=== PATIENT | male | born 1950 | race Caucasian/White ===

== ENCOUNTER → 2023-05-05 06:33 | Outpatient (REF) | payer MEDICARE, OTHER, SELFPAY ==
[2023-05-05 09:28] LABS: % Basophils 0.7 % (0-2); % Eosinophils 3.9 % (0-6); % Immature Granulocytes 0.4 % (0-0.5); % Monocytes 10.8 % (1.7-9.3); % Neutrophils 57.2 % (42.2-75.2); Absolute Eosinophils 0.2 10^3/uL (0-0.7); Absolute Lymphocytes 1.5 10^3/uL (1.2-3.4); Absolute Monocytes 0.6 10^3/uL (0.1-0.6); Absolute Neutrophils 3.1 10^3/uL (1.4-6.5); Hematocrit 45.1 % (39.0-52.0); Hemoglobin 16.2 g/dL (13.0-18.0); Mean Corp Hgb Conc. 35.9 g/dL (33.0-37.0); Mean Corpuscular Hgb 32.7 pg (27.0-31.0); Mean Corpuscular Volume 90.9 fL (80.0-94.0); Mean Platelet Volume 9.6 fL (7.4-10.4); Nucleated Red Blood Cells % 0 % (-); Platelet Count 194 10^3/uL (130-400); Red Blood Cell Count 4.96 10^6/uL (4.70-6.10); Red Cell Dist. Width 12.1 % (11.5-14.5); White Blood Cell Count 5.5 10^3/uL (4.8-10.8)
[2023-05-05 09:58] LABS: Glycohemoglobin (HgbA1c) 6.2 % (4.0-5.6)
[2023-05-05 10:15] LABS: ALT (SGPT) 53 U/L (0-50); AST (SGOT) 52 U/L (17-59); Albumin 4.3 g/dl (3.5-5.0); Alkaline Phosphatase 71 U/L (38-126); Blood Urea Nitrogen 16 mg/dl (9-20); Calcium 9.7 mg/dl (8.4-10.2); Carbon Dioxide 22 mmol/L (22-30); Chloride 107 mmol/L (98-107); Glucose 132 mg/dl (70-99); HDL Cholesterol 43 mg/dl; LDL Cholesterol, Calculated 212 mg/dl; Potassium 4.2 mmol/L (3.5-5.1); Sodium 139 mmol/L (135-145); Total Bilirubin 0.9 mg/dl (0.2-1.3); Total Cholesterol 302 mg/dl (50-199); Total Protein 7.8 g/dl (6.3-8.2); Triglyceride 235 mg/dl (10-149); Very Low Density Lipoprotein 47 mg/dl (0-30); eGFR 58.73
== END ==
LOC: HWLAB 06:33
PROVIDERS: ATTENDING PHYSICIAN Surgery Vascular Surgery; FAMILY PHYSICIAN Internal Medicine; REFERRING PHYSICIAN Internal Medicine Cardiovascular Disease
DX: I71.40 Abdominal aortic aneurysm, without rupture, unspecified (principal); I10 Essential (primary) hypertension; E78.5 Hyperlipidemia, unspecified
CPT/HCPCS: 36415; 80053; 80061; 83036; 85025

== ENCOUNTER → 2023-05-06 13:10 | Outpatient (REF) | payer MEDICARE, OTHER, SELFPAY | LOC: HWRAD 13:10 | PROVIDERS: ATTENDING PHYSICIAN Surgery Vascular Surgery; FAMILY PHYSICIAN Internal Medicine | DX: I71.40 Abdominal aortic aneurysm, without rupture, unspecified (principal) | CPT/HCPCS: 74174; Q9967 ==

== ENCOUNTER 2023-08-06 23:35 | Emergency (ER) | payer MEDICARE, OTHER, SELFPAY ==
[2023-08-06 23:38] VITALS: BP 156/110
[2023-08-06 23:59] LABS: % Basophils 0.5 % (0-2); % Eosinophils 2.2 % (0-6); % Immature Granulocytes 0.4 % (0-0.5); % Lymphocytes 10.5 % (20.5-51.1); % Monocytes 9.5 % (1.7-9.3); % Neutrophils 76.9 % (42.2-75.2); Absolute Basophils 0.1 10^3/uL (0-0.2); Absolute Eosinophils 0.3 10^3/uL (0-0.7); Absolute Immature Granulocytes 0.1 10^3/uL (0-0.05); Absolute Lymphocytes 1.2 10^3/uL (1.2-3.4); Absolute Monocytes 1.1 10^3/uL (0.1-0.6); Hematocrit 40.4 % (39.0-52.0); Hemoglobin 14.7 g/dL (13.0-18.0); Mean Corp Hgb Conc. 36.4 g/dL (33.0-37.0); Mean Corpuscular Hgb 32.5 pg (27.0-31.0); Mean Corpuscular Volume 89.2 fL (80.0-94.0); Mean Platelet Volume 9.1 fL (7.4-10.4); Nucleated Red Blood Cells % 0 % (-); Platelet Count 172 10^3/uL (130-400); Red Blood Cell Count 4.53 10^6/uL (4.70-6.10); Red Cell Dist. Width 12.3 % (11.5-14.5); White Blood Cell Count 11.7 10^3/uL (4.8-10.8)
[2023-08-07] MEDS: ZOFRAN 4 MG IV (00:07)
[2023-08-07] MEDS: DILAUDID 0.5 MG IV ×2 (00:07→01:10)
[2023-08-07 00:11] VITALS: BP 117/77
[2023-08-07 00:13] LABS: ALT (SGPT) 34 U/L (0-50); AST (SGOT) 47 U/L (17-59); Albumin 4.2 g/dl (3.5-5.0); Alkaline Phosphatase 63 U/L (38-126); Blood Urea Nitrogen 18 mg/dl (9-20); Calcium 9.6 mg/dl (8.4-10.2); Carbon Dioxide 22 mmol/L (22-30); Chloride 105 mmol/L (98-107); Glucose 183 mg/dl (70-99); Potassium 3.9 mmol/L (3.5-5.1); Sodium 138 mmol/L (135-145); Total Bilirubin 0.8 mg/dl (0.2-1.3); Total Protein 7.4 g/dl (6.3-8.2); eGFR > 60.00
[2023-08-07 00:23] LABS: Urine Albumin Negative (Neg - Trace); Urine Bilirubin Negative (Negative); Urine Character Clear (Clear); Urine Color Yellow; Urine Glucose Negative (Negative); Urine Ketone Negative (Negative); Urine Leukocyte Negative (Negative); Urine Nitrite Negative (Negative); Urine Occult Blood 4+ (Negative); Urine Urobilinogen Negative (Neg - 1+)
[2023-08-07 00:37] LABS: Urine Red Blood Cell 60-70 /HPF (0-2); Urine White Cell 0-2 /HPF (0-5)
[2023-08-07 01:00] VITALS: BP 124/79
[2023-08-07 02:00] VITALS: BP 119/78
--- NOTE | 2023-08-07 02:06 | ED.GENMED ---
History of Present Illness
General
Chief Complaint: Flank Pain
Source: patient
Exam Limitations: none
Time Seen by Provider: 08/06/23 23:59
Nursing documentation reviewed up to this point in time: agreed with
Travel History
Have you had any contact with someone who has COVID-19?: No
Do you have any symptoms of coronavirus? Fever > 100 degrees, chills, cough, shortness of breath, sore throat, loss of taste or smell, muscle aches, or headache?: No
History of Present Illness
History of Present Illness:
Patient to ED with complaint of left flank pain. Pain started this evening. Denies fever/chills, n/v/d. Hx of kidney stones. Last event apptox 2 years ago. Had stent placed at [facility]. Brought to ED by family for eval.
Past History
Past History
ED Past Medical History: GERD, HTN, Hypercholesterolemia and Other (AAA, kidney stones)
ED Past Surgical History: Tonsilectomy and Other (AAA repair)
Social History
Tobacco: Former smoker
Alcohol: Occasional
Drug: None
Personal: Single
Living: alone
Review of Systems
Review of Systems
Allergies reviewed?: Yes
All Other Systems: ROS reviewed and negative except as documented in HPI and ROS
Constitutional: Reports no symptoms
EENT: Reports no symptoms
Respiratory: Reports no symptoms
Cardiac: Reports no symptoms
ABD/GI: Reports no symptoms
: Reports flank pain (left flank pain)
Musculoskeletal: Reports no symptoms
Skin: Reports no symptoms
Neurological: Reports no symptoms
Psychiatric: Reports no symptoms
Phy Exam
General Physical Exam
General Presentation: well appearing and mild distress
General age: appears stated age
General Skin: warm and dry
General Habitus: normal
General Mental: alert
Gastrointestinal Exam
Gastrointestinal Exam: normal bowel sounds, non tender, soft and no organomegaly
Musculoskeletal Exam
Musculoskeletal Exam: full ROM
Skin Exam
Skin Exam: normal color, warm/dry and no rash
Psychiatric Exam
Psychiatric Exam: normal mood/affect
Course
Orders/Labs/Results
Orders:
Orders
08/06/23 23:42
UA Reflex to Culture [Urinalysis Reflex To Culture] Urgent
Date Specimen was Collected: 08/06/23
Time Specimen was Collected: 23:42
08/06/23 23:53
Complete Blood Count/With Diff Urgent
Comprehensive Metabolic Panel Urgent
08/07/23 00:00
CT Abd/pel Without Iv Or Oral Urgent
Comment:
Reason For Exam: flank pain
08/07/23 00:03
HYDROmorphone [Dilaudid] 0.5 mg .ROUTE .STK-MED ONE
HYDROmorphone [Dilaudid] 0.5 mg .ROUTE .STK-MED ONE
Ondansetron Injectable [Zofran] 4 mg .ROUTE .STK-MED ONE
Ondansetron Injectable [Zofran] 4 mg .ROUTE .STK-MED ONE
08/07/23 00:05
HYDROmorphone [Dilaudid] 0.5 mg IV NOW STA
Ondansetron Injectable [Zofran] 4 mg IV NOW STA
08/07/23 00:14
Urine Microscopic Reflex Cult Urgent
08/07/23 01:03
HYDROmorphone [Dilaudid] 0.5 mg IV NOW STA
08/07/23 02:05
Tamsulosin [Flomax] 0.4 mg PO NOW STA
Abnormal Lab Results
08/06/23 08/07/23
23:53 00:14
WBC 11.7 H 10^3/uL
(4.8-10.8)
RBC 4.53 L 10^6/uL
(4.70-6.10)
MCH 32.5 H pg
(27.0-31.0)
Abs Immat Gran (auto) 0.1 H 10^3/uL
(0-0.05)
Absolute Neuts (auto) 9.0 H 10^3/uL
(1.4-6.5)
Absolute Monos (auto) 1.1 H 10^3/uL
(0.1-0.6)
Neutrophils % 76.9 H %
(42.2-75.2)
Lymphocytes % 10.5 L %
(20.5-51.1)
Monocytes % 9.5 H %
(1.7-9.3)
Glucose 183 H mg/dl
(70-99)
Ur Occult Blood Reflex 4+ A
(Negative)
Urine RBC 60-70 A /HPF
(0-2)
08/06/23 23:53
08/06/23 23:53
Vital Signs
Initial and Last Documented VS:
Initial Vital Signs
Temp Pulse Resp BP Pulse Ox
98.0 F 79 20 156/110 97
08/06/23 23:38 08/06/23 23:38 08/06/23 23:38 08/06/23 23:38 08/06/23 23:38
Last Documented Vital Signs
Temp Pulse Resp BP Pulse Ox
98.0 F 79 20 124/79 92
08/06/23 23:38 08/06/23 23:38 08/06/23 23:38 08/07/23 01:00 08/07/23 01:30
*Radiology
Radiology exam reviewed: radiology read reviewed
*Pulse Oximetry
Patient hypoxic: no
*Critical Care Note
Total Time (30-74mins, 75-104mins- exclusive of procedures): Not Applicable
Update Note
Update Note:
Ct report reviewed with patient. 7mm obstructing stone distal left ureter. He is aware that this stone may not pass on own and require placement of stent. He has had stones in the past and has had stents placed. He does not want to be admitted
tonight He would like to go home with pain medications and try to pass on own. He is well controlled with pain meds here. No nausea or vomiting while in dept. UA without evidence of infection. WIll place on flomax and provide pain medications
for home. He was given instructions on s/s to return to ED and he is agreeable to plan. Given number for urology follow up and will call in AM for appt.
ED Attending Note
-
Portions of this chart may have been created with voice recognition software.� Occasional wrong word or��sound alike� substitutions may have occurred due to the inherent limitations of voice recognition software.
Discharge Plan
Departure
Patient Disposition: Home (Routine Discharge)
Date of Disposition: 08/07/23
Time of Disposition: 02:13
Patient with high blood pressure during this ER visit?: No
Condition: Good
Covid-19: Not Applicable
Discharge Problem:
Kidney stone
Instructions: Kidney Stones (DC), How to Strain Your Urine, Narcotic Pain Medication
Prescriptions:
New
tamsulosin [Flomax] 0.4 mg capsule
0.4 mg PO DAILY Qty: 14 0RF
oxycodone-acetaminophen [Percocet] 5-325 mg tablet
1 - 2 tab PO Q4HPRN PRN (Reason: pain) Qty: 20 0RF
No Action
valsartan 80 MG tablet
80 mg PO DAILY
metoprolol succinate 25 MG tablet extended release 24 hr
50 mg PO DAILY
rosuvastatin 10 MG tablet
20 mg PO DAILY
ascorbic acid (vitamin C) 250 MG tablet
250 mg PO DAILY
vitamin B complex 1 TAB tablet
1 tab PO DAILY
cholecalciferol (vitamin D3) 2,000 UNIT tablet
2,000 unit PO DAILY
acetaminophen 325 MG tablet
650 mg PO Q4HPRN PRN (Reason: mild pain or temp >/= 100.4F) 0RF
pantoprazole 20 MG tablet,delayed release (DR/EC)
20 mg PO DAILY 0RF
aspirin 81 MG tablet,chewable
81 mg PO DAILY Qty: 90 0RF
clopidogrel [Plavix] 75 MG tablet
75 mg PO DAILY Qty: 90 0RF
Referrals:
Rick Christy MD [Family Provider] -
Cale Nichols MD [Active] - Call in 1-3 days for appt
Activity Restrictions/Additional Instructions:
Call in AM to schedule your appointment with Dr. Nichols. Return to the emergency department immediately for fever/chills, increasing pain, vomiting, or for any further concerns.
Interventions
Interventions:
*Risk Screen - Suicide Last Done: 08/06/23 23:38
*General Assessment Last Done: 08/06/23 23:38
*Neglect/Abuse Screening Last Done: 08/06/23 23:38
ED- Fall Risk Assessment Last Done: 08/06/23 23:38
*ED COVID-19 Vaccine History Last Done: 08/06/23 23:38
VE-Sghbog-Neuzmryhyt Assessment Last Done: 08/07/23 00:59
ED-Male Genitourinary Assessment Last Done: 08/07/23 00:59
Discharge Date and Time
Print Language: ZIMBABWEAN
[2023-08-07] MEDS: FLOMAX 0.400000000000000022 MG PO (02:21)
[2023-08-07] MEDS: PERCOCET 5/325 1 TABLET PO (03:06)
== END 2023-08-07 03:11 | disposition home or self-care (01) ==
LOC: EMR 23:35
PROVIDERS: Emergency Medicine; EMERGENCY PHYSICIAN Emergency Medicine; FAMILY PHYSICIAN Internal Medicine
DX: N20.1 Calculus of ureter (principal)
CPT/HCPCS: 99284; 96374; 96375; 96376; 74176; 80053; 81003; 81015; 85025

== ENCOUNTER 2024-04-28 20:11 | Inpatient (IN) | payer MEDICARE, OTHER, SELFPAY ==
[2024-04-28] VITALS (7 sets, daily range): BP systolic 129–153; BP diastolic 76–101; BMI 25.9
[2024-04-28 11:33] LABS: % Basophils 0.4 % (0-2); % Eosinophils 0.5 % (0-6); % Immature Granulocytes 0.4 % (0-0.5); % Lymphocytes 6.9 % (20.5-51.1); % Monocytes 10.6 % (1.7-9.3); % Neutrophils 81.2 % (42.2-75.2); Absolute Eosinophils 0.1 10^3/uL (0-0.7); Absolute Lymphocytes 0.8 10^3/uL (1.2-3.4); Absolute Monocytes 1.2 10^3/uL (0.1-0.6); Absolute Neutrophils 9.1 10^3/uL (1.4-6.5); Hematocrit 43.4 % (39.0-52.0); Hemoglobin 14.7 g/dL (13.0-18.0); Mean Corp Hgb Conc. 33.9 g/dL (33.0-37.0); Mean Corpuscular Hgb 32.5 pg (27.0-31.0); Mean Corpuscular Volume 95.8 fL (80.0-94.0); Mean Platelet Volume 9.5 fL (7.4-10.4); Nucleated Red Blood Cells % 0 % (-); Platelet Count 296 10^3/uL (130-400); Red Blood Cell Count 4.53 10^6/uL (4.70-6.10); Red Cell Dist. Width 12.2 % (11.5-14.5); White Blood Cell Count 11.2 10^3/uL (4.8-10.8)
[2024-04-28 11:41] LABS: ALT (SGPT) 68 U/L (0-50); AST (SGOT) 42 U/L (17-59); Albumin 3.6 g/dl (3.5-5.0); Alkaline Phosphatase 183 U/L (38-126); Blood Urea Nitrogen 16 mg/dl (9-20); Calcium 9.2 mg/dl (8.4-10.2); Carbon Dioxide 25 mmol/L (22-30); Chloride 99 mmol/L (98-107); Glucose 191 mg/dl (70-99); Potassium 4.3 mmol/L (3.5-5.1); Sodium 137 mmol/L (135-145); Total Bilirubin 1.1 mg/dl (0.2-1.3); Total Protein 7.2 g/dl (6.3-8.2); eGFR > 60.00
[2024-04-28 11:50] LABS: Urine Albumin 3+ (Neg - Trace); Urine Bilirubin 1+ (Negative); Urine Character Clear (Clear); Urine Color Yellow; Urine Glucose 1+ (Negative); Urine Ketone Negative (Negative); Urine Leukocyte 1+ (Negative); Urine Nitrite Negative (Negative); Urine Occult Blood 3+ (Negative); Urine Specific Gravity 1.015 (<1.030); Urine Urobilinogen 4+ (Neg - 1+)
[2024-04-28 12:59] LABS: Urine Bacteria Moderate (Negative); Urine Squamous Cell 0-2 /LPF (Few)
--- NOTE | 2024-04-28 14:07 | ED.GENMED ---
History of Present Illness
General
Chief Complaint: Flank Pain
Source: patient
Exam Limitations: none
Time Seen by Provider: 04/28/24 14:05
Nursing documentation reviewed up to this point in time: agreed with
History of Present Illness
History of Present Illness:
73 yo male with hx HTN, HLD, AAA repair, kidney stones, GERD, presents for right flank pain radiating around to the right abdomen for the past few days, getting worse.
States he had a fever and body aches a week ago has been taking Advil. Has been taking Tamiflu with improvement of body aches, fever.
Past History
Past History
ED Past Medical History: GERD, HTN, Hypercholesterolemia and Other (AAA, kidney stones)
ED Past Surgical History: Tonsilectomy and Other (AAA repair)
Social History
Tobacco: Former smoker
Alcohol: Occasional
Drug: None
Personal: Single
Living: alone
Review of Systems
Review of Systems
Allergies reviewed?: Yes
All Other Systems: ROS reviewed and negative except as documented in HPI and ROS
Constitutional: Denies fever
Respiratory: Denies cough or trouble breathing
Cardiac: Denies chest pain
ABD/GI: Denies nausea, vomiting or diarrhea
: Reports flank pain (right); Denies frequency or difficulty voiding
Musculoskeletal: Reports no symptoms
Skin: Reports no symptoms
Neurological: Reports no symptoms
Phy Exam
Physical Exam
Physical Exam:
GENERAL: No acute distress. A&Ox3.
CONSTITUTIONAL: Afebrile. T 98.7 for this examiner is shivering
EYES: clear, conjunctivae normal
ENMT: moist mucus membranes, Pharynx nl
RESPIRATORY: Regular respirations, nonlabored, lungs clear.
CARDIOVASCULAR: Regular rate and rhythm, no murmurs, no rubs. Tachycardic HR 122
GI: Soft, nontender, normal BS. R flank tenderness to percussion
MUSCULOSKELETAL: Moves with ease. Well perfused. No edema
SKIN: Warm, dry, pink
PSYCH: Normal mood and affect. Well kept, interactive and appropriate
NEUROLOGIC: Awake, alert and oriented. No focal neurological deficits
Course
Orders/Labs/Results
Orders:
Orders
04/28/24 11:10
Complete Blood Count/With Diff Urgent
Comprehensive Metabolic Panel Urgent
Urinalysis Reflex To Culture Urgent
Date Specimen was Collected: 04/28/24
Time Specimen was Collected: 11:02
Urine Microscopic Reflex Cult Urgent
Urine Culture Urgent
JEAN MARIE Source: U
Specimen Description:
Date Specimen was Collected: 04/28/24
Time Specimen was Collected: 11:02
04/28/24 14:07
CT Abd/pel Without Iv Or Oral Urgent
Comment:
Reason For Exam: Right flank pain hematuria history of renal stones
04/28/24 14:14
Morphine Sulfate 4 mg IV NOW STA
04/28/24 14:18
0.9% Sodium Chloride 1000 ml [Nss] 1,000 ml IV BOLUS
04/28/24 14:47
Influenza A+B Rapid Molecular Urgent
JEAN MARIE Source: Nasal Swab
Specimen Description:
04/28/24 14:50
COVID-19 Antigen Urgent
Source: Nasal Swab
04/28/24 15:53
CR Chest - 2 Views Urgent
Comment:
Reason For Exam: fever, flu like symptoms, flu neg
04/28/24 17:14
Acetaminophen [Tylenol] 650 mg .ROUTE .STK-MED ONE
04/28/24 17:17
Acetaminophen [Tylenol] 650 mg PO NOW STA
04/28/24 17:27
Lactic Acid Urgent
Blood Culture Urgent
JEAN MARIE Source: Blood/Venous
Specimen Description:
04/28/24 17:32
0.9% Sodium Chloride 1000 ml [Nss] 1,000 ml IV BOLUS
04/28/24 17:57
Blood Culture Urgent
JEAN MARIE Source: Blood/Venous
Specimen Description:
04/28/24 19:02
CefTRIAXone [Rocephin] 1,000 mg IV NOW STA
Abnormal Lab Results
04/28/24
11:10
WBC 11.2 H 10^3/uL
(4.8-10.8)
RBC 4.53 L 10^6/uL
(4.70-6.10)
MCV 95.8 H fL
(80.0-94.0)
MCH 32.5 H pg
(27.0-31.0)
Absolute Neuts (auto) 9.1 H 10^3/uL
(1.4-6.5)
Absolute Lymphs (auto) 0.8 L 10^3/uL
(1.2-3.4)
Absolute Monos (auto) 1.2 H 10^3/uL
(0.1-0.6)
Neutrophils % 81.2 H %
(42.2-75.2)
Lymphocytes % 6.9 L %
(20.5-51.1)
Monocytes % 10.6 H %
(1.7-9.3)
Glucose 191 H mg/dl
(70-99)
ALT 68 H U/L
(0-50)
Alkaline Phosphatase 183 H U/L
(38-126)
Ur Occult Blood Reflex 3+ A
(Negative)
Urine Bilirubin 1+ A
(Negative)
Urine Urobilinogen 4+ A
(Neg - 1+)
Leukocyte Esterase Rfl 1+ A
(Negative)
Urine RBC 7-10 A /HPF
(0-2)
Urine Bacteria (Reflex) Moderate A
(Negative)
Urine Glucose 1+ A
(Negative)
Urine Albumin (Reflex) 3+ A
(Neg - Trace)
04/28/24 11:10
04/28/24 11:10
Vital Signs
Initial and Last Documented VS:
Initial Vital Signs
Temp Pulse Resp BP Pulse Ox
98.7 F 120 16 129/86 98
04/28/24 11:00 04/28/24 11:00 04/28/24 11:00 04/28/24 11:00 04/28/24 11:00
Last Documented Vital Signs
Temp Pulse Resp BP Pulse Ox
102.9 F H 111 18 134/78 97
04/28/24 18:00 04/28/24 18:00 04/28/24 18:00 04/28/24 18:00 04/28/24 18:00
MDM/Problems Addressed
Differential Diagnosis Includes:
UTI, Pyelonephritis, kidney/ureteral stone
Flu, Covid, Viral illness
MDM/Problems Addressed:
73 yo male with hx HTN, HLD, AAA repair, kidney stones, GERD, presents for right flank pain radiating around to the right abdomen for the past few days, getting worse.
States he had a fever and body aches a week ago has been taking Advil. Has been taking Tamiflu with improvement of body aches, fever.
Afebrile, NAD
Shivering, tachycardic HR 122
Right flank pain 7/10
3:00 PM:
CBC with no clinically significant abnormality
CMP with no clinically significant abnormality mild elevation in ALT alk phos most likely reactive to viral illness
U/A: RBC, 6-10 WBC with moderate bacteria. Urine culture ordered
3:45 PM:
CAT scan abdomen pelvis plain radiology report read: IMPRESSION:
1). There is no evidence of acute pathology.
There are no obstructing renal or ureteral calculi.
There is no hydronephrosis or hydroureter.
2). There is a 6 mm nonobstructing calculus in the upper pole the right kidney
3). There is cholelithiasis
4). There is aortobiiliac stent traverses 5.3 cm infrarenal abdominal aortic aneurysm
Hx and exam most consistent with recently passed stone.
COVID is negative
Influenza is negative
Temp 100.7 will get CXR
5:00 PM:
Patient spiked a fever of 102.8, heart rate 125, BP 146/101, RR 22, pulse ox 96%
Abdomen totally benign, no flank pain now. Pt states headache and general body aches.
Neck supple, no meningismus chest x-ray: Radiology report read: IMPRESSION:
1. No radiographic evidence for pneumonia.
2. Mild elevation of the anterior right hemidiaphragm.
6:50 PM:
Patient has defervesced to 98.1 after Tylenol and 2 L of IV fluid but HR 109
He states he feels like he broke his fever because he broke out in a sweat and is feeling better
He still has a mild headache
He has been out of bed and ambulating to the bathroom and back with steady gait
Concern for pyelonephritis with high fever, initially right flank pain, tachycardia
Case discussed with Dr. Carrero who agree with Ibis, admit pending blood and urine cultures
*Critical Care Note
Total Time (30-74mins, 75-104mins- exclusive of procedures): Not Applicable
ED Attending Note
-
Portions of this chart may have been created with voice recognition software.� Occasional wrong word or��sound alike� substitutions may have occurred due to the inherent limitations of voice recognition software.
Discharge Plan
Departure
Patient Disposition: Admit
Date of Disposition: 04/28/24
Time of Disposition: 18:52
Admit to: Med/Surg
Presentation/result/management discussed w/ accepting MD/DO: Hospitalist
Patient with high blood pressure during this ER visit?: No
Condition: Fair
Covid-19: Negative COVID-19
Discharge Problem:
Fever and chills, Acute right flank pain, Acute UTI
Prescriptions:
No Action
valsartan 80 MG tablet
80 mg PO DAILY
metoprolol succinate 25 MG tablet extended release 24 hr
50 mg PO DAILY
rosuvastatin 10 MG tablet
20 mg PO DAILY
ascorbic acid (vitamin C) 250 MG tablet
250 mg PO DAILY
vitamin B complex 1 TAB tablet
1 tab PO DAILY
cholecalciferol (vitamin D3) 2,000 UNIT tablet
2,000 unit PO DAILY
acetaminophen 325 MG tablet
650 mg PO Q4HPRN PRN (Reason: mild pain or temp >/= 100.4F) 0RF
pantoprazole 20 MG tablet,delayed release (DR/EC)
20 mg PO DAILY 0RF
aspirin 81 MG tablet,chewable
81 mg PO DAILY Qty: 90 0RF
clopidogrel [Plavix] 75 MG tablet
75 mg PO DAILY Qty: 90 0RF
tamsulosin [Flomax] 0.4 mg capsule
0.4 mg PO DAILY Qty: 14 0RF
oxycodone-acetaminophen [Percocet] 5-325 mg tablet
1 - 2 tab PO Q4HPRN PRN (Reason: pain) Qty: 20 0RF
Referrals:
Rick Christy MD [Family Provider] - Follow up in 5-7 days
Interventions
Interventions:
*Risk Screen - Suicide Last Done: 04/28/24 11:00
*General Assessment Last Done: 04/28/24 15:41
*Neglect/Abuse Screening Last Done: 04/28/24 11:00
ED- Fall Risk Assessment Last Done: 04/28/24 15:41
*ED COVID-19 Vaccine History Last Done: 04/28/24 15:41
GY-Fkwgxf-Akxevgyrzv Assessment Last Done: 04/28/24 15:41
ED-Male Genitourinary Assessment Last Done: 04/28/24 15:41
Discharge Date and Time
Print Language: [place]
[2024-04-28] MEDS: MORPHINE SULFATE 4 MG IV (14:40)
[2024-04-28] MEDS: NSS 1000 IV ×3 (14:40→21:41)
[2024-04-28 15:28] LABS: COVID-19 Antigen Negative (Negative)
--- NOTE | 2024-04-28 17:02 | EDRN ---
Obinna DALLAS TT'd about fever 102.8 and 125 at this time.
[2024-04-28] MEDS: TYLENOL 650 MG PO ×2 (17:18→23:53)
--- NOTE | 2024-04-28 17:34 | EDRN ---
Obinna DALLAS in room w/pt at this time.
[2024-04-28 17:47] LABS: Lactic Acid 1.6 mmol/L (0.7-2.0)
[2024-04-28] MEDS: ROCEPHIN 1000 MG IV (19:17)
--- NOTE | 2024-04-28 19:54 | HPS.HSE ---
Family Physician
-
Family Physician: Rick Christy
Chief Complaint
-
right flank pain
History of Present Illness
73-year-old male past medical history of hypertension, hyperlipidemia, abdominal aortic aneurysm status post aortic stent graft repair, nephrolithiasis, GERD, presenting with right-sided flank pain radiating around to the anterior abdomen and down
to the groin for the past 6 days associated with fever. He thought he was having a kidney stone. He was also having generalized bodyaches for the past several days without any upper respiratory symptoms such as cough, congestion, sore throat or
shortness of breath. He thought that he may have the flu so he took Tamiflu which he took for 3 to 4 days with some improvement in his body aches. He lives with his family and denies any sick contacts.
He denies any urinary symptoms, blood in the urine, nausea vomiting or diarrhea.
Medical History
Past Medical History
Past Medical History: Reports Other (hypertension, hyperlipidemia, abdominal aortic aneurysm status post aortic stent graft repair, nephrolithiasis, GERD)
Past Surgical History: Reports Other (AAA repair )
Social History
Tobacco: Non-smoker
Alcohol: None
Drug: None
Family History
Family History: Not pertinent
Allergies / Home Medications
Allergies reflects when Allergies were last updated in [facility].
Home Medications with original date entered in [facility]
Allergy/Medication List:
Allergies
Allergy/AdvReac Type Severity Reaction Status Date / Time
No Known Allergies Allergy Verified 04/28/24 11:01
Home Medications
rosuvastatin 10 mg tablet 20 mg PO DAILY High cholesterol 08/22/21
valsartan 80 mg tablet 160 mg PO QPM Blood pressure 08/22/21
vitamin B complex 1 tab PO DAILY Supplement 08/25/21
acetaminophen 325 mg tablet 650 mg (2 x 325 mg) PO Q4HPRN PRN mild pain or temp >/= 100.4F 09/03/21
aspirin 81 mg chewable tablet 81 mg PO DAILY #90 tabs 09/03/21
metoprolol succinate 50 mg tablet,extended release 24 hr (Toprol XL) 50 mg PO DAILY 04/28/24
omeprazole 20 mg tablet,delayed release 20 mg PO DAILY 04/28/24
Review of Systems
-
History Source: Patient
A 12 point ROS was completed and negative except as noted: Yes
Constitutional: Reports No Symptoms
EENT: Reports No Symptoms
Respiratory: Reports No Symptoms
Cardiac: Reports No Symptoms
Abdomen/GI: Reports See HPI
: Reports No Symptoms
Musculoskeletal: Reports No Symptoms
Skin: Reports No Symptoms
Neurological: Reports No Symptoms
Endocrine: Reports No Symptoms
Hematologic/Lymphatic: Reports No Symptoms
Psych: Reports No Symptoms
Physical Exam
Vital Signs
Vital Signs
Temp Pulse Resp BP Pulse Ox
102.9 F H 111 18 134/78 97
04/28/24 18:00 04/28/24 18:00 04/28/24 18:00 04/28/24 18:00 04/28/24 18:00
Physical Exam
General: Well Developed, Well Nourished and No Apparent Distress
HEENT: NormoCephalic, Moist mucous membranes and Atraumatic
Respiratory: Clear
Cardiac: S1/S2 and Regular Rhythm; No Murmur or Rub
GI: Soft, Non Tender, Non Distended and Normal Bowel Sounds; No Organomegaly
Rectal: Deferred by Provider
Musculoskeletal: No Clubbing, No Cyanosis and No Edema
Skin: No Rash
Neuro: Nonfocal/grossly intact
Laboratory Results
-
04/28/24 11:10
04/28/24 11:10
Laboratory Results
Lactic Acid 1.6 mmol/L (0.7-2.0) 04/28/24 17:27
Total Bilirubin 1.1 mg/dl (0.2-1.3) 04/28/24 11:10
AST 42 U/L (17-59) 04/28/24 11:10
ALT 68 U/L (0-50) H 04/28/24 11:10
Alkaline Phosphatase 183 U/L (38-126) H 04/28/24 11:10
Data Reviewed
-
Lab Data: Labs Reviewed by me
Old Records: Reviewed
Impression/Plan
-
IMPRESSION:
PLAN:
# Sepsis (fever, tachycardia, leukocytosis) presumably secondary to UTI
# Right flank pain possibly secondary to nonobstructive kidney stone versus musculoskeletal
-Urinalysis not strongly positive, shows 6-10 WBC, moderate bacteria, +1 leukocyte esterase but no other source
-Chest x-ray unremarkable
-Influenza and COVID-negative
-CT abdomen pelvis shows no acute pathology or obstructing calculi but there is 6 mm nonobstructing calculus in the upper pole of the right kidney
-Check urine culture, blood cultures
-IV fluids
-Source is presumably UTI so we will treat with ceftriaxone although no urinary symptoms
-Morphine for pain
Essential hypertension
-Continue metoprolol, valsartan
Hyperlipidemia
-Continue statin
Abdominal aortic aneurysm status post repair
-Continue aspirin
History of nephrolithiasis
GERD
-Continue omeprazole
Full code
DVT prophylaxis�heparin
Regular diet
--- NOTE | 2024-04-28 20:23 | ED.GENMED ---
History of Present Illness
General
Chief Complaint: Flank Pain
Source: patient
Exam Limitations: none
Time Seen by Provider: 04/28/24 14:05
Nursing documentation reviewed up to this point in time: agreed with
History of Present Illness
History of Present Illness:
73 yo male w h/o HTN, HLD, GERD, recurrent kidney stones, AAA s/p vascular graft repair presents with R side flank pain radiating to right lower abdomen, fever, chills, since 04/26 , then developed general aching pains . Is on day 3 of Tamiflu with
no improvement. Denies CP, SOB, n/v/d.
Past History
Past History
ED Past Medical History: GERD, HTN, Hypercholesterolemia and Other (AAA, kidney stones)
ED Past Surgical History: Tonsilectomy and Other (AAA repair)
Social History
Tobacco: Former smoker
Alcohol: Occasional
Drug: None
Personal: Single
Living: alone
Review of Systems
Review of Systems
Allergies reviewed?: Yes
All Other Systems: ROS reviewed and negative except as documented in HPI and ROS
Constitutional: Reports fever and chills
EENT: Denies sore throat
Respiratory: Denies trouble breathing
Cardiac: Denies chest pain
ABD/GI: Reports abdominal pain; Denies nausea, vomiting or diarrhea
: Reports flank pain (Right); Denies dysuria or difficulty voiding
Musculoskeletal: Reports other (General Body aches); Denies edema
Skin: Reports no symptoms
Neurological: Reports no symptoms
Phy Exam
Physical Exam
Physical Exam:
GENERAL: No acute distress. A&Ox3.
CONSTITUTIONAL: Afebrile.
EYES: clear, conjunctivae normal
ENMT: moist mucus membranes, Pharynx nl
RESPIRATORY: Regular respirations, nonlabored, lungs clear.
CARDIOVASCULAR: Regular rate and rhythm, no murmurs, no rubs.
GI: Soft, right flank with no significant tenderness, normal BS
MUSCULOSKELETAL: Moves with ease. Well perfused.
SKIN: Warm, dry, pink
PSYCH: Anxious mood and affect. Well kept, interactive and appropriate
NEUROLOGIC: Awake, alert and oriented. No focal neurological deficits
Course
Orders/Labs/Results
Orders:
Orders
04/28/24 11:10
Complete Blood Count/With Diff Urgent
Comprehensive Metabolic Panel Urgent
Urinalysis Reflex To Culture Urgent
Date Specimen was Collected: 04/28/24
Time Specimen was Collected: 11:02
Urine Microscopic Reflex Cult Urgent
Urine Culture Urgent
JEAN MARIE Source: U
Specimen Description:
Date Specimen was Collected: 04/28/24
Time Specimen was Collected: 11:02
04/28/24 14:07
CT Abd/pel Without Iv Or Oral Urgent
Comment:
Reason For Exam: Right flank pain hematuria history of renal stones
04/28/24 14:14
Morphine Sulfate 4 mg IV NOW STA
04/28/24 14:18
0.9% Sodium Chloride 1000 ml [Nss] 1,000 ml IV BOLUS
04/28/24 14:47
Influenza A+B Rapid Molecular Urgent
JEAN MARIE Source: Nasal Swab
Specimen Description:
04/28/24 14:50
COVID-19 Antigen Urgent
Source: Nasal Swab
04/28/24 Dinner
Regular
At Your Request: Limited Participation
04/28/24 15:53
CR Chest - 2 Views Urgent
Comment:
Reason For Exam: fever, flu like symptoms, flu neg
04/28/24 17:14
Acetaminophen [Tylenol] 650 mg .ROUTE .STK-MED ONE
04/28/24 17:17
Acetaminophen [Tylenol] 650 mg PO NOW STA
04/28/24 17:27
Lactic Acid Urgent
Blood Culture Urgent
JEAN MARIE Source: Blood/Venous
Specimen Description:
04/28/24 17:32
0.9% Sodium Chloride 1000 ml [Nss] 1,000 ml IV BOLUS
04/28/24 17:57
Blood Culture Urgent
JEAN MARIE Source: Blood/Venous
Specimen Description:
04/28/24 19:02
CefTRIAXone [Rocephin] 1,000 mg IV NOW STA
04/28/24 19:14
Sterile Water [Sterile Water For Injection] 20 ml .ROUTE .STK-MED
04/28/24 19:49
Admit/Transfer Patient As Directed
Co-Sign Provider:
Level of Care: Inpatient admission
Assign to:: Medical/Surgical
Physician / Group: shaniqua
Diagnosis: sepsis uti
Reason for Hospitalization: sepsis uti
Expected length of stay greater than two midnights?: Yes
ELOS- Estimated Length of Stay in days: 2
I certify the patient meets the requirements for IP care: Yes
04/28/24 19:50
Code Status As Directed
Resuscitation Status: Full Code
PRN Pain Medication Management As Directed
May give lesser potent ordered pain med per pt: Yes
preference::
Protocol:: Medication orders for pain may be administered in a
manner that supports deferring to patient preference
when the pt is:
- Requesting an ordered lesser potent pain medication.
Least to most potent pain medications are defined
as: acetaminophen < NSAID < tramadol < opioids
(morphine, oxycodone, hydromorphone).
- Requesting a lesser dose of the same medication IF
ORDERED.
- Requesting a less intrusive route of administration
if both routes are prescribed by the provider (PO <
IV).
04/28/24 20:48
0.9% Sodium Chloride 1000 ml [Nss] 1,000 ml IV 100 mls/hr
Acetaminophen [Tylenol] 650 mg PO Q4HPRN PRN
Heparin 5,000 units SC Q12
Morphine Sulfate 1 mg IV Q4HPRN PRN
04/28/24 20:48
Activity As Directed
Activity Level: As Tolerated
Vital Signs As Directed
Frequency: Per unit guidelines
DX Deep Vein Thrombosis Video Routine
04/29/24 06:34
Complete Blood Count/With Diff IN AM
Comprehensive Metabolic Panel IN AM
04/29/24 08:00
Aspirin Chewable [Low Strength Aspirin] 81 mg PO DAILY
Metoprolol Xl [Toprol Xl] 50 mg PO DAILY
Pantoprazole [Protonix] 40 mg PO DAILY
Rosuvastatin Calcium [Crestor] 20 mg PO DAILY
Vitamin B Complex with C [B COMPLEX w/VITAMIN C] 1 caplet PO DAILY
04/29/24 18:00
Valsartan [Diovan] 160 mg PO QPM
04/29/24 20:00
CefTRIAXone [Rocephin] 1,000 mg IV Q24H
Abnormal Lab Results
04/28/24
11:10
WBC 11.2 H 10^3/uL
(4.8-10.8)
RBC 4.53 L 10^6/uL
(4.70-6.10)
MCV 95.8 H fL
(80.0-94.0)
MCH 32.5 H pg
(27.0-31.0)
Absolute Neuts (auto) 9.1 H 10^3/uL
(1.4-6.5)
Absolute Lymphs (auto) 0.8 L 10^3/uL
(1.2-3.4)
Absolute Monos (auto) 1.2 H 10^3/uL
(0.1-0.6)
Neutrophils % 81.2 H %
(42.2-75.2)
Lymphocytes % 6.9 L %
(20.5-51.1)
Monocytes % 10.6 H %
(1.7-9.3)
Glucose 191 H mg/dl
(70-99)
ALT 68 H U/L
(0-50)
Alkaline Phosphatase 183 H U/L
(38-126)
Ur Occult Blood Reflex 3+ A
(Negative)
Urine Bilirubin 1+ A
(Negative)
Urine Urobilinogen 4+ A
(Neg - 1+)
Leukocyte Esterase Rfl 1+ A
(Negative)
Urine RBC 7-10 A /HPF
(0-2)
Urine Bacteria (Reflex) Moderate A
(Negative)
Urine Glucose 1+ A
(Negative)
Urine Albumin (Reflex) 3+ A
(Neg - Trace)
04/28/24 11:10
04/28/24 11:10
Vital Signs
Initial and Last Documented VS:
Initial Vital Signs
Temp Pulse Resp BP Pulse Ox
98.7 F 120 16 129/86 98
04/28/24 11:00 04/28/24 11:00 04/28/24 11:00 04/28/24 11:00 04/28/24 11:00
Last Documented Vital Signs
Temp Pulse Resp BP Pulse Ox
98 F 83 18 132/87 96
05/01/24 15:00 05/01/24 16:46 05/01/24 15:00 05/01/24 16:46 05/01/24 15:00
MDM/Problems Addressed
Differential Diagnosis Includes:
Kidney stone, UTI, pyelonephritis
With persistent fever: PNA, bacteremia, SIRS, Sepsis
MDM/Problems Addressed:
73 yo male w h/o HTN, HLD, GERD, recurrent kidney stones, AAA s/p vascular graft repair presents with R side flank pain radiating to right lower abdomen, fever, chills, since 04/26 , then developed general aching pains . Is on day 3 of Tamiflu with
no improvement. Denies CP, SOB, n/v/d.
Afebrile, Appears mildly ill with chills, moderately uncomfortable with R flank pain
9:00 a.m.
CBC: WBC 11.2 with left shift
CMP: Mild elevation ALT alk phos, glucose 191, otherwise normal
UA: 3+ blood, bilirubin, urobilinogen positive for, leukocyte esterase +1, WBC 6-10, RBC 7-10, moderate bacteria, this could reflect a recently passed stone, early UTI, urine culture pending
4:20 PM:
RN reports the patient spiked a fever of 102.9.
UA: Will treat empirically with Rocephin
Consider bacteremia with fever and chills
1814:
Chest x-ray: Radiology report read: IMPRESSION:
1. No radiographic evidence for pneumonia.
2. Mild elevation of the anterior right hemidiaphragm.
Plan: Admit: SIRS
Hospitalist notified of admission
Blood cultures pending
*Critical Care Note
Total Time (30-74mins, 75-104mins- exclusive of procedures): Not Applicable
ED Attending Note
-
Portions of this chart may have been created with voice recognition software.� Occasional wrong word or��sound alike� substitutions may have occurred due to the inherent limitations of voice recognition software.
Discharge Plan
Departure
Patient Disposition: Admit
Date of Disposition: 04/28/24
Time of Disposition: 18:52
Admit to: Med/Surg
Presentation/result/management discussed w/ accepting MD/DO: Hospitalist
Patient with high blood pressure during this ER visit?: No
Condition: Fair
Covid-19: Negative COVID-19
Discharge Problem:
Acute right flank pain, Acute UTI, SIRS (systemic inflammatory response syndrome)
Interventions
Interventions:
*Risk Screen - Suicide Last Done: 04/28/24 11:00
*General Assessment Last Done: 04/28/24 15:41
*Neglect/Abuse Screening Last Done: 04/28/24 11:00
ED- Fall Risk Assessment Last Done: 04/28/24 15:41
*ED COVID-19 Vaccine History Last Done: 04/28/24 15:41
*Nursing Disposition Last Done: 04/28/24 20:54
GF-Fvjkab-Kodrdawwsf Assessment Last Done: 04/28/24 15:41
ED-Male Genitourinary Assessment Last Done: 04/28/24 15:41
Discharge Date and Time
Discharge Date/Time: 04/28/24 20:55
--- NOTE | 2024-04-28 20:40 | PTCARENOTE ---
Pt received from ED at 2039. Pt pleasant, AAOX3, VSS, and able to ambulate into room with assistance. Pt complains of 7/10 pain in lower abdomen and R flank area- see MAY. Pt recpetive to room and call wilkerson. Pt bed in lowest position and call wilkerson
within reach. Pt educated on importance of call wilkerson usage, pt relays understanding. Will continue with current plan of care.
[2024-04-28] MEDS: MORPHINE SULFATE 1 MG IV (21:46)
[2024-04-28] MEDS: HEPARIN 5000 UNITS SC (21:48)
[2024-04-29 01:19] VITALS: BP 127/70
[2024-04-29] MEDS: MOTRIN 400 MG PO ×2 (01:58→15:12)
[2024-04-29 07:26] LABS: % Basophils 0.3 % (0-2); % Eosinophils 0.1 % (0-6); % Immature Granulocytes 0.7 % (0-0.5); % Lymphocytes 7.5 % (20.5-51.1); % Monocytes 11.7 % (1.7-9.3); % Neutrophils 79.7 % (42.2-75.2); Absolute Immature Granulocytes 0.1 10^3/uL (0-0.05); Absolute Lymphocytes 0.7 10^3/uL (1.2-3.4); Absolute Monocytes 1.1 10^3/uL (0.1-0.6); Absolute Neutrophils 7.8 10^3/uL (1.4-6.5); Hematocrit 37.1 % (39.0-52.0); Hemoglobin 12.6 g/dL (13.0-18.0); Mean Corpuscular Hgb 32.6 pg (27.0-31.0); Mean Corpuscular Volume 96.1 fL (80.0-94.0); Mean Platelet Volume 9.6 fL (7.4-10.4); Nucleated Red Blood Cells % 0 % (-); Platelet Count 232 10^3/uL (130-400); Red Blood Cell Count 3.86 10^6/uL (4.70-6.10); Red Cell Dist. Width 12.4 % (11.5-14.5); White Blood Cell Count 9.8 10^3/uL (4.8-10.8)
[2024-04-29 07:56] LABS: ALT (SGPT) 54 U/L (0-50); AST (SGOT) 38 U/L (17-59); Albumin 2.9 g/dl (3.5-5.0); Alkaline Phosphatase 153 U/L (38-126); Blood Urea Nitrogen 14 mg/dl (9-20); Carbon Dioxide 23 mmol/L (22-30); Chloride 103 mmol/L (98-107); Estimated Creatinine Clearance 77 ml/min; Glucose 157 mg/dl (70-99); Potassium 4.1 mmol/L (3.5-5.1); Sodium 135 mmol/L (135-145); Total Bilirubin 0.7 mg/dl (0.2-1.3); Total Protein 5.7 g/dl (6.3-8.2); eGFR > 60.00
[2024-04-29 08:11] VITALS: BP 129/80
[2024-04-29] MEDS: HEPARIN 5000 UNITS SC ×2 (08:17→19:26)
[2024-04-29] MEDS: CRESTOR 20 MG PO (08:18)
[2024-04-29] MEDS: PROTONIX 40 MG PO (08:18)
[2024-04-29] MEDS: B COMPLEX w/VITAMIN C 1 CAPLET PO (08:18)
[2024-04-29] MEDS: TOPROL XL 50 MG PO (08:18)
[2024-04-29] MEDS: LOW STRENGTH ASPIRIN 81 MG PO (08:18)
[2024-04-29] MEDS: NSS 1000 IV ×2 (08:31→16:58)
--- NOTE | 2024-04-29 11:57 | W.PN.HOSP.TC ---
Today's Communication/Plan
-
tums for dyspepsia. Diet as tolerated. Pain meds increased.
Assessment / Plan
Assessment / Plan
73-year-old man past medical history of:
hypertension,
hyperlipidemia,
abdominal aortic aneurysm status post aortic stent graft repair,
nephrolithiasis,
GERD,
Comes in with right-sided flank pain radiating around to the anterior abdomen and down to the groin for the past 6 days associated with fever. He denies any urinary symptoms, blood in the urine, nausea vomiting or diarrhea. Found to have sepsis
likely secondary to urinary source.
1. Sepsis (fever, tachycardia, leukocytosis) presumably secondary to UTI
-Right flank pain possibly secondary to nonobstructive kidney stone versus musculoskeletal
-Urinalysis not strongly positive, shows 6-10 WBC, moderate bacteria, +1 leukocyte esterase but no other source
-Chest x-ray unremarkable, -Influenza and COVID-negative
-CT abdomen pelvis shows no acute pathology or obstructing calculi but there is 6 mm nonobstructing calculus in the upper pole of the right kidney
-Check urine culture, blood cultures
-Continue IV fluids
-Since source is likely UTI, continue treat with ceftriaxone
-Morphine for pain
-urology consult iif not better by tomorrow
2. Essential hypertension
-Continue metoprolol, valsartan
3. Hyperlipidemia
-Continue statin
4. Abdominal aortic aneurysm status post repair
-Continue aspirin
5. GERD
-Continue omeprazole
Full code
DVT prophylaxis�heparin
Regular diet
Anticipated Discharge: > 48 hours
Subjective/Interval History
-
Date of Service: April 29, 2024
Objective Data
-
Labs:
Laboratory Results
04/29/24
06:34
WBC 9.8
Hgb 12.6 L
Hct 37.1 L
Plt Count 232 D
Sodium 135
Potassium 4.1
Chloride 103
Carbon Dioxide 23
BUN 14
Creatinine 0.9
Glucose 157 H
Calcium 8.0 L
Total Bilirubin 0.7
AST 38
ALT 54 H
Alkaline Phosphatase 153 H
Vital Signs:
Vital Signs
Temp Pulse Resp BP Pulse Ox
98.7 F 81 15 129/80 96
04/29/24 08:11 04/29/24 08:18 04/29/24 08:11 04/29/24 08:18 04/29/24 08:11
I&O
04/28/24 04/29/24 04/30/24
06:59 06:59 06:59
Intake Total 900 / 900
Output Total 275 / 275
Balance 625 / 625
[2024-04-29] MEDS: MORPHINE SULFATE 3 MG IV (12:25)
[2024-04-29] MEDS: TUMS CHEWABLE TABLET 400 MG PO (12:25)
[2024-04-29 15:12] VITALS: BP 134/99
[2024-04-29] MEDS: DIOVAN 160 MG PO (17:01)
[2024-04-29] MEDS: ROCEPHIN 1000 MG IV (19:25)
[2024-04-29] MEDS: TYLENOL 650 MG PO (19:26)
[2024-04-29] MEDS: STERILE WATER FOR INJECTION 10 ML IV (19:26)
[2024-04-29 23:39] VITALS: BP 121/73
[2024-04-30] MEDS: MORPHINE SULFATE 3 MG IV ×2 (01:11→05:21)
[2024-04-30] MEDS: NSS 1000 IV ×2 (02:51→17:31)
[2024-04-30] MEDS: TYLENOL 650 MG PO (03:00)
[2024-04-30 07:00] VITALS: BP 142/78
[2024-04-30 07:20] LABS: Hemoglobin 12.2 g/dL (13.0-18.0); Mean Corp Hgb Conc. 33.9 g/dL (33.0-37.0); Mean Corpuscular Hgb 32.8 pg (27.0-31.0); Mean Corpuscular Volume 96.8 fL (80.0-94.0); Platelet Count 241 10^3/uL (130-400); Red Blood Cell Count 3.72 10^6/uL (4.70-6.10); Red Cell Dist. Width 12.6 % (11.5-14.5)
[2024-04-30 07:43] VITALS: BP 142/78
[2024-04-30 07:45] LABS: Blood Urea Nitrogen 15 mg/dl (9-20); Calcium 8.1 mg/dl (8.4-10.2); Carbon Dioxide 23 mmol/L (22-30); Chloride 100 mmol/L (98-107); Estimated Creatinine Clearance 86 ml/min; Glucose 154 mg/dl (70-99); Potassium 3.8 mmol/L (3.5-5.1); Sodium 136 mmol/L (135-145); eGFR > 60.00
--- NOTE | 2024-04-30 09:18 | W.PN.HOSP.TC ---
Addendum entered and electronically signed by Felipa Parker MD 04/30/24 10:04:
updated niece on the phone per pt request
Answered all questions
Original Note:
Today's Communication/Plan
-
see A/P
Assessment / Plan
Assessment / Plan
73-year-old man past medical history of
hypertension,
hyperlipidemia,
abdominal aortic aneurysm status post aortic stent graft repair,
nephrolithiasis,
GERD,
comes in with right-sided flank pain radiating around to the anterior abdomen and down to the groin for the past 6 days associated with fever.
A/P:
# Sepsis (fever, tachycardia, leukocytosis) POA with staph aureus bacteremia
blood culture x2 on admission positive for staph, follow S/S
check repeat blood culture culture
Add IV vanc to ceftriaxone
Check echo
Also follow urine culture
Of note, Chest x-ray unremarkable, Influenza and COVID-negative. CT AP showed no acute pathology or obstructing calculi but there is 6 mm nonobstructing calculus in the upper pole of the right kidney
ID CS
# Right flank pain possibly secondary to nonobstructive kidney stone (renal colic) versus musculoskeletal
Morphine for pain
# Essential hypertension
Continue metoprolol, valsartan with holding parameter
# Hyperlipidemia
Continue statin
# Abdominal aortic aneurysm status post repair
Continue aspirin
# GERD
Continue omeprazole
Full code
DVT prophylaxis� lovenox SQ
Regular diet
DW RN
total time 51 min
Anticipated Discharge: > 48 hours
Subjective/Interval History
-
Date of Service: April 30, 2024
Objective Data
-
Labs:
Laboratory Results
04/30/24
06:02
WBC 10.0
Hgb 12.2 L
Hct 36.0 L
Plt Count 241
Sodium 136
Potassium 3.8
Chloride 100
Carbon Dioxide 23
BUN 15
Creatinine 0.8
Glucose 154 H
Calcium 8.1 L
Vital Signs:
Vital Signs
Temp Pulse Resp BP Pulse Ox
36.8 C 81 14 142/78 97
04/30/24 07:00 04/30/24 07:00 04/30/24 07:00 04/30/24 07:00 04/30/24 07:00
I&O
04/29/24 04/30/24 05/01/24
06:59 06:59 06:59
Intake Total 900 / 900 1920 / 1920
Output Total 275 / 275 250 / 250
Balance 625 / 625 1670 / 1670
Review of Systems
-
All other systems: Reviewed and negative
Constitutional: Reports Fever and Chills
Physical Exam
-
General: Well Developed, Well Nourished, No Apparent Distress, Comfortable and Conversant; Negative Respiratory Distress
HEENT: Normocephalic, Atraumatic, Nose Appears Normal and Ears Appear Normal; Negative Oxygen
Respiratory: Clear to Auscultation and Non Labored Respirations; Negative Accessory Resp Muscle Use
Cardiac: Regular Rhythm and S1/S2
GI: Soft, Nontender, Nondistended and Normal Bowel Sounds
Skin: Warm and Dry
Neuro: Awake, Alert, Oriented and AO x 3
Psych: Calm and Intact Judgement/Insight
Data Reviewed
-
Labs: Labs Reviewed by me and Discussed with Patient
--- NOTE | 2024-04-30 09:25 | PHA.VAN.IN ---
Assessment
- Assessment
Renal Function: Appears similar to baseline
Concomitant Antimicrobials: ceftriaxone
AUC Dosing Plan
- Dosing Variables
Dosing Weight (kg): 81.8
Dosing CrCl (ml/min): 86
Vd coefficient (L/kg): 0.7
- Empiric Dosing
Initial / Loading Dose: 1000mg
Maintenance Regimen: 1000mg q12h
Estimated AUC (mcg*h/mL): 478
Estimated Peak (mcg*h/mL): 29.2
Estimated Trough (mcg/ml): 12.7
Estimated Half Life (H): 9.1
- Monitoring
No levels ordered at this time: consider at steady state
Pharmacokinetics Vancomycin I
- -
Patient Age: 73
Patient Sex: Male
Vancomycin Day #: 1
Indication: Bacteremia
Requesting Provider: Dr. Parker
Pertinent Antimicrobial Allergies:
nkda
Height / Weight:
Height 5 ft 10 in
Actual Weight 81.788 kg
IBW in k
- Vital Signs / Lab Results
Temp Pulse Resp BP Pulse Ox
99.3 F 81 14 142/78 97
04/30/24 09:19 04/30/24 07:00 04/30/24 07:00 04/30/24 07:00 04/30/24 07:00
Lab Results - Hematology
04/28/24 04/29/24 04/30/24
11:10 06:34 06:02
WBC 11.2 H 9.8 10.0
Lab Results - Chemistry
04/28/24 04/29/24 04/30/24
11:10 06:34 06:02
BUN 16 14 15
Creatinine 1.1 0.9 0.8
Estimated Creat Clear 77 86
Albumin 3.6 2.9 L
04/28/24
17:27
Lactic Acid 1.6
Lab Results - Urine
04/28/24
11:10
Urine Nitrite (Reflex) Negative
Leukocyte Esterase Rfl 1+ A
Urine WBC (Reflex) 6-10
Ur Squamous Epith Cells 0-2
Urine Bacteria (Reflex) Moderate A
Microbiology Results
04/28/24 17:57 Blood Culture - Preliminary
Blood/Venous Staphylococcus aureus
Gram Stain - Preliminary
04/28/24 17:27 Blood Culture - Preliminary
Blood/Venous Staphylococcus aureus
Gram Stain - Final
04/28/24 11:10 Urine Culture - Final
Urine NO GROWTH
04/28/24 14:47 Influenza Types A & B (CANDACE) - Final
Nasal Swab Negative for Influenza A & B, NAAT
Negative results must be combined with clinical observations
and patient history.
Nucleic Acid Amplification test (NAAT)performed on the
[email or web address] platform.
[2024-04-30] MEDS: B COMPLEX w/VITAMIN C 1 CAPLET PO (09:29)
[2024-04-30] MEDS: PROTONIX 40 MG PO (09:29)
[2024-04-30] MEDS: CRESTOR 20 MG PO (09:30)
[2024-04-30] MEDS: LOW STRENGTH ASPIRIN 81 MG PO (09:30)
[2024-04-30] MEDS: HEPARIN 5000 UNITS SC (09:30)
[2024-04-30] MEDS: TOPROL XL 50 MG PO (09:32)
[2024-04-30] MEDS: MOTRIN 400 MG PO (09:33)
--- NOTE | 2024-04-30 09:53 | CM ---
Initial assessment completed
IMM signed 04/28/2024
Pharmacy verified: [facility] @ [address]
Secondary Contact: Maria G RomanbeauRaul,
Patient and significant other live in a multilevel home; 4-5 steps to enter and between floors; bath has tub w/ shower
PLOF: Independent with ambulation, stairs, and ADLs; drives; semi-retired
Family or significant other will transport him home
No history of SNF or Home Health utilization history
Discharge plan to be determined; CM will monitor for services/needs
[2024-04-30] MEDS: VANCOCIN 200 IV ×2 (11:31→17:30)
[2024-04-30] MEDS: MORPHINE SULFATE 1 MG IV ×2 (11:31→17:24)
--- NOTE | 2024-04-30 14:17 | CON.ID ---
Consultation
-
Date/Time Consultation Requested: 04/30/24 9:22
Date/Time Consultation Performed: 04/30/24 14:36
Requesting Provider: Dr Parker
Performing Provider: Dr Lopes
Reason for Consultation: S aurues bacteremia without a source
Chief Complaint / Past History
Chief Complaint
right flank pain
History of Present Illness
Mr Smart is a 73 year old male with a history of recurrent nephrolithiasis, AAA s/p vascular graft repair who presented here on 04/28 for right sided flank pain with radiation to the groin. Relates that symptoms are similar to previous renal
stones. Also reports fevers and chills which began last wednesday 04/26. Progressed to generalized myalgias. Denies cough, congestion, sore trhoat, shortness of breath, dysuria, urgency, nausea or vomiting. No wounds. No history of bacteremia or
stent infection. No history of s aurues infection previously. Thought he had the flu and took tamiful without improvement over 3-4 days and then presented here.
Since arrival here he was initially persistently febrile to tmax of 103.5 rectally, BP stable, wbc 11 now 10.0, hgb 14.7 now 12.2, plt 241, L shift present on arrival, cr initially 1.1 now 0.8, lactic acid 1.6, t bili 0.7, ast 38, alt 54, alk phos
153, UA 6-10 wbc/hpf and moderate bacteria, covid ag negative, CT a/p without IV or oral contrast: 6 mm nonobstructing calculus in the upper pole the right kidney, aortobiiliac stent traverses 5.3 cm infrarenal abdominal aortic aneurysm, CXR no
evidence of pneumonia, blood cultures x2 30 minutes apart both with s aurues, repeat blood cultures x2 then vancomycin was started. Patient has been on ceftriaxone since admission.
Past History
Additional Past Medical History:
hypertension, hyperlipidemia, abdominal aortic aneurysm status post aortic stent graft repair, nephrolithiasis, GERD
Additional Past Surgical History:
AAA repair
Allergy History:
No Known Allergies Allergy (Verified 04/28/24 11:01)
Medications Reviewed: Yes
Social History
Tobacco: Non-Smoker
Alcohol: None
Drug: None
Family History
Family History: Not Pertinent
Review of Systems
Review of Systems
General: Fever and Chills
All systems: All other systems were reviewed and were negative
Vital Signs
Temp Pulse Resp BP Pulse Ox
99.3 F 81 14 142/78 97
04/30/24 09:19 04/30/24 07:00 04/30/24 07:00 04/30/24 07:00 04/30/24 07:00
Physical Exam
Physical Exam
Constitutional: No Acute Distress
Cardiovascular: Regular Rate and S1/S2; Negative Murmur or Rub
Pulmonary: Clear and Symmetric; Negative Wheezes, Rales or Rhonchi
Gastrointestinal: Soft, Non Tender, Non Distended and Normal Bowel Sounds
Genito-Urinary: Negative Suprapubic Tenderness
Extremities: Other (no joint swelling)
Skin: Warm and Dry; Negative Rash or Jaundice
Wound: None
Neurological: Awake
Lab / Diagnostic Study Results
04/30/24 06:02
04/30/24 06:02
Abs Immat Gran (auto) 0.1 10^3/uL (0-0.05) H 04/29/24 06:34
Absolute Neuts (auto) 7.8 10^3/uL (1.4-6.5) H 04/29/24 06:34
Absolute Lymphs (auto) 0.7 10^3/uL (1.2-3.4) L 04/29/24 06:34
Absolute Monos (auto) 1.1 10^3/uL (0.1-0.6) H 04/29/24 06:34
Absolute Basos (auto) 0.0 10^3/uL (0-0.2) 04/29/24 06:34
Immature Gran % 0.7 % (0-0.5) H 04/29/24 06:34
Neutrophils % 79.7 % (42.2-75.2) H 04/29/24 06:34
Lymphocytes % 7.5 % (20.5-51.1) L 04/29/24 06:34
Monocytes % 11.7 % (1.7-9.3) H 04/29/24 06:34
Eosinophils % 0.1 % (0-6) 04/29/24 06:34
Basophils % 0.3 % (0-2) 04/29/24 06:34
Lactic Acid 1.6 mmol/L (0.7-2.0) 04/28/24 17:27
Ur Squamous Epith Cells 0-2 /LPF (Few) 04/28/24 11:10
Microbiology Results
Micro:
04/30/24 10:31 Blood Culture - Pending
Blood/Venous
04/30/24 10:04 Blood Culture - Pending
Blood/Venous
04/28/24 17:57 Blood Culture - Preliminary
Blood/Venous Staphylococcus aureus
Gram Stain - Preliminary
04/28/24 17:27 Blood Culture - Preliminary
Blood/Venous Staphylococcus aureus
Gram Stain - Final
04/28/24 11:10 Urine Culture - Final
Urine NO GROWTH
04/28/24 14:47 Influenza Types A & B (CANDACE) - Final
Nasal Swab Negative for Influenza A & B, NAAT
Negative results must be combined with clinical observations
and patient history.
Nucleic Acid Amplification test (NAAT)performed on the
[employer] platform.
Assessment / Plan
S aurues bacteremia
- repeat blood cultures x2 obtained before vancomycin started
- awaiting final ID and sensitivities
- await echo
- CT a/p without contrast - nonobstructing renal stone, AAA stent in place
- no definite source thus far
- c/w vancomycin
- stopped ceftriaxone, start cefazolin
- patient requesting evaluation with vascular surgery group - can be considered tomorrow
- follow clinically
[2024-04-30 15:24] VITALS: BP 129/74
[2024-04-30] MEDS: ANCEF 10 IV ×2 (17:35→23:46)
[2024-04-30] MEDS: VISBIOME 1 CAP PO (17:35)
[2024-04-30] MEDS: LOVENOX 40 MG SC (17:36)
[2024-04-30] MEDS: DIOVAN 160 MG PO (18:10)
[2024-04-30 23:11] VITALS: BP 122/69
[2024-05-01] MEDS: MORPHINE SULFATE 1 MG IV (02:07)
[2024-05-01] MEDS: PERCOCET 5/325 1 TABLET PO ×4 (04:50→21:29)
[2024-05-01] MEDS: VANCOCIN 200 IV (05:11)
--- NOTE | 2024-05-01 05:34 | PTCARENOTE ---
Pt continues to c/o R flank pain 09/14, but states he doesn't want to take morphine again. kd Peoples notified and placed orders for PRN percocet, med given to pt.
[2024-05-01] MEDS: NSS 1000 IV (06:54)
[2024-05-01 07:00] VITALS: BP 115/74
[2024-05-01] MEDS: NSS IV (07:29)
[2024-05-01 08:03] LABS: % Basophils 0.2 % (0-2); % Eosinophils 0.5 % (0-6); % Immature Granulocytes 0.5 % (0-0.5); % Lymphocytes 8.1 % (20.5-51.1); % Monocytes 10.7 % (1.7-9.3); Absolute Eosinophils 0.1 10^3/uL (0-0.7); Absolute Immature Granulocytes 0.1 10^3/uL (0-0.05); Absolute Lymphocytes 0.8 10^3/uL (1.2-3.4); Absolute Monocytes 1.1 10^3/uL (0.1-0.6); Hematocrit 35.2 % (39.0-52.0); Mean Corp Hgb Conc. 34.1 g/dL (33.0-37.0); Mean Corpuscular Hgb 31.9 pg (27.0-31.0); Mean Corpuscular Volume 93.6 fL (80.0-94.0); Mean Platelet Volume 9.8 fL (7.4-10.4); Nucleated Red Blood Cells % 0 % (-); Platelet Count 269 10^3/uL (130-400); Red Blood Cell Count 3.76 10^6/uL (4.70-6.10); Red Cell Dist. Width 12.7 % (11.5-14.5)
[2024-05-01] MEDS: VISBIOME 1 CAP PO (08:19)
[2024-05-01] MEDS: PROTONIX 40 MG PO (08:19)
[2024-05-01] MEDS: CRESTOR 20 MG PO (08:19)
[2024-05-01] MEDS: ANCEF 10 IV ×2 (08:19→16:45)
[2024-05-01] MEDS: B COMPLEX w/VITAMIN C 1 CAPLET PO (08:19)
[2024-05-01] MEDS: LOW STRENGTH ASPIRIN 81 MG PO (08:19)
[2024-05-01] MEDS: TOPROL XL 50 MG PO (08:21)
[2024-05-01 09:02] LABS: Glycohemoglobin (HgbA1c) 6.4 % (4.0-5.6)
[2024-05-01 09:13] LABS: ALT (SGPT) 38 U/L (0-50); AST (SGOT) 35 U/L (17-59); Albumin 2.6 g/dl (3.5-5.0); Alkaline Phosphatase 177 U/L (38-126); Blood Urea Nitrogen 12 mg/dl (9-20); Calcium 8.1 mg/dl (8.4-10.2); Carbon Dioxide 21 mmol/L (22-30); Chloride 103 mmol/L (98-107); Direct Bilirubin 0.4 mg/dl (0.0-0.4); Estimated Creatinine Clearance 98 ml/min; Glucose 139 mg/dl (70-99); Magnesium 1.9 mg/dl (1.6-2.3); Potassium 3.8 mmol/L (3.5-5.1); Sodium 135 mmol/L (135-145); Total Bilirubin 0.7 mg/dl (0.2-1.3); Total Protein 5.5 g/dl (6.3-8.2); eGFR > 60.00
--- NOTE | 2024-05-01 09:33 | W.PN.HOSP.TC ---
Today's Communication/Plan
-
see bold
Assessment / Plan
Assessment / Plan
73-year-old man past medical history of
hypertension,
hyperlipidemia,
abdominal aortic aneurysm status post aortic stent graft repair,
nephrolithiasis,
GERD,
comes in with right-sided flank pain radiating around to the anterior abdomen and down to the groin for the past 6 days associated with fever.
A/P:
# Sepsis (fever, tachycardia, leukocytosis) POA with staph aureus bacteremia
Of note, Chest x-ray unremarkable, Influenza and COVID-negative
CT AP showed no acute pathology or obstructing calculi but there is 6 mm nonobstructing calculus in the upper pole of the right kidney
Appreciate ID input, antibiotics changed to ancef, echo negative for vegetations
Unclear source. Check CTA today
# Right flank pain possibly secondary to nonobstructive kidney stone (renal colic) versus musculoskeletal
Continue pain meds
# Essential hypertension
Continue metoprolol, valsartan with holding parameter
# Hyperlipidemia
Continue statin
# Abdominal aortic aneurysm status post repair
Consult vascular surgery, continue aspirin
# GERD
Continue omeprazole
DVT prophylaxis�subcu Lovenox
Full code
Total time spent to see the patient on the floor, examine the patient, review data and lab results, discuss treatment plan with patient, nursing staff around 45 minutes.
Physical Exam
General: No acute distress
HEENT: Normocephalic, Atraumatic, EOMI, MMM
Respiratory: Clear to Auscultation bilaterally
Cardiac: Normal S1/S2, Regular Rate and Rhythm
GI: Soft, Nontender, Nondistended, Normal Bowel Sounds
Extremities: No Clubbing, Cyanosis, or Edema
Neuro: Nonfocal/Grossly Intact
Psych: Calm, Cooperative
Derm: No Visible lesions
Anticipated Discharge: 24 - 48 hours
Subjective/Interval History
-
Date of Service: May 01, 2024
Patient complains of right flank pain for 2 weeks, constant. No fever, no vomiting. No chest pain, no shortness of breath.
Objective Data
-
Labs:
Laboratory Results
05/01/24 05/01/24
07:32 07:33
WBC 10.0
Hgb 12.0 L
Hct 35.2 L
Plt Count 269
Sodium 135
Potassium 3.8
Chloride 103
Carbon Dioxide 21 L
BUN 12
Creatinine 0.7
Glucose 139 H
Calcium 8.1 L
Total Bilirubin 0.7
AST 35
ALT 38
Alkaline Phosphatase 177 H
Vital Signs:
Vital Signs
Temp Pulse Resp BP Pulse Ox
97.7 F 82 20 115/74 96
05/01/24 07:00 05/01/24 08:21 05/01/24 07:00 05/01/24 08:21 05/01/24 07:00
I&O
04/30/24 05/01/24 05/02/24
06:59 06:59 06:59
Intake Total 1919 / 1919 193 / 1929 240 / 240
Output Total 250 / 250 200 / 200
Balance 1670 / 1670 1730 / 1730 240 / 240
--- NOTE | 2024-05-01 11:11 | W.PN.ID1 ---
Date of Service
Date of Service: May 01, 2024
Today's Communication
c/w cefazolin
Assessment / Plan
MSSA bacteremia
H/o AAA repair with stenting - 3 years ago
Prediabetes
- repeat blood cultures x2 obtained before vancomycin started, however after patient had received ceftriaxone which is effective for MSSA
- await echo
- CT a/p without contrast - nonobstructing renal stone in the RU renal pole, AAA stent in place
- CTA today given abdominal symptoms
- no definite source thus far
- c/w cefazolin, stopped vancomycin
- patient requesting evaluation with vascular surgery group, called consult
- follow clinically
Chief Complaint
-: Bacteremia
Subjective / Review of Systems
afebrile
bp stable
back pain ongoing
no changes in vision or new joint pains
Vital Signs / Physical Exam
Vital Signs
Vital Signs
Temp Pulse Resp BP Pulse Ox
97.7 F 82 20 115/74 96
05/01/24 07:00 05/01/24 08:21 05/01/24 07:00 05/01/24 08:21 05/01/24 07:00
Physical Exam
Constitutional: No Acute Distress
Cardiovascular: Regular Rate and S1/S2; Negative Murmur or Rub
Pulmonary: Clear and Symmetric; Negative Wheezes or Rales
Gastrointestinal: Soft, Non Tender, Non Distended and Normal Bowel Sounds
Skin: Warm and Dry; Negative Rash or Jaundice
Objective Data
Lab Data
Lab Results
05/01/24 07:33
05/01/24 07:32
Estimated Creat Clear 98 ml/min 05/01/24 07:32
Lactic Acid 1.6 mmol/L (0.7-2.0) 04/28/24 17:27
Total Bilirubin 0.7 mg/dl (0.2-1.3) 05/01/24 07:32
AST 35 U/L (17-59) 05/01/24 07:32
ALT 38 U/L (0-50) 05/01/24 07:32
Alkaline Phosphatase 177 U/L (38-126) H 05/01/24 07:32
Most recent labs reviewed.
Micro Results:
04/30/24 10:31 Blood Culture - Preliminary
Blood/Venous No Growth in 24 hours- Final report to follow
04/28/24 17:57 Blood Culture - Final
Blood/Venous S aureus-Methicillin Sensitive
Gram Stain - Final
04/28/24 17:27 Blood Culture - Final
Blood/Venous S aureus-Methicillin Sensitive
Gram Stain - Final
05/01/24 09:42 Blood Culture - Pending
Blood/Venous
04/30/24 10:04 Blood Culture - Preliminary
Blood/Venous No Growth in 24 hours- Final report to follow
05/01/24 07:32 Blood Culture - Pending
Blood/Venous
04/28/24 11:10 Urine Culture - Final
Urine NO GROWTH
04/28/24 14:47 Influenza Types A & B (CANDACE) - Final
Nasal Swab Negative for Influenza A & B, NAAT
Negative results must be combined with clinical observations
and patient history.
Nucleic Acid Amplification test (NAAT)performed on the
[email or web address] platform.
[2024-05-01 15:00] VITALS: BP 132/87
[2024-05-01] MEDS: DIOVAN 160 MG PO (16:46)
[2024-05-01] MEDS: LOVENOX 40 MG SC (16:46)
[2024-05-01] MEDS: TYLENOL 650 MG PO (17:44)
[2024-05-01 23:28] VITALS: BP 119/79
[2024-05-02] MEDS: ANCEF 10 IV ×4 (00:36→23:45)
[2024-05-02] MEDS: PERCOCET 5/325 1 TABLET PO ×6 (01:29→21:55)
[2024-05-02 07:04] VITALS: BP 125/74
[2024-05-02 07:22] LABS: Hematocrit 36.1 % (39.0-52.0); Hemoglobin 12.3 g/dL (13.0-18.0); Mean Corp Hgb Conc. 34.1 g/dL (33.0-37.0); Mean Corpuscular Hgb 32.5 pg (27.0-31.0); Mean Corpuscular Volume 95.5 fL (80.0-94.0); Mean Platelet Volume 10.2 fL (7.4-10.4); Platelet Count 306 10^3/uL (130-400); Red Blood Cell Count 3.78 10^6/uL (4.70-6.10); Red Cell Dist. Width 12.7 % (11.5-14.5); White Blood Cell Count 10.1 10^3/uL (4.8-10.8)
[2024-05-02 07:32] LABS: Blood Urea Nitrogen 10 mg/dl (9-20); Calcium 8.2 mg/dl (8.4-10.2); Carbon Dioxide 23 mmol/L (22-30); Chloride 101 mmol/L (98-107); Estimated Creatinine Clearance 86 ml/min; Glucose 140 mg/dl (70-99); Potassium 3.5 mmol/L (3.5-5.1); Sodium 135 mmol/L (135-145); eGFR > 60.00
--- NOTE | 2024-05-02 08:35 | CON.VAS ---
Addendum entered and electronically signed by Darin Alicea III, MD 05/02/24 14:40:
This patient was seen and examined in collaboration with BURT Barnett. I agree with the history and physical exam as well as the assessment and plan. I have the following additions:
Previous uncomplicated fenestrated stent graft repair of a juxtarenal abdominal aortic aneurysm approximately 3 years ago in August 2021
Has been seen in follow-up since that time with no issues
Now admitted with bacteremia of unclear etiology
CT angiogram of the abdomen and pelvis reviewed. There is a 2 cm collection around the right common iliac artery/iliac limb and adjacent to the right ureter.
He had a recent dental procedure performed the week before last
Started with high-grade fevers and malaise last week
Right flank pain and pelvic pain subjectively similar to previous kidney stones
Admitted to the hospital on April 28, 2024
+ MSSA bacteremia
He denies other recent procedures aside from the dental procedure above
Denies any other instrumentation
Does not have a known recent history of kidney stones or instrumentation in that regard
The only event precipitating this clinical presentation is his recent oral/dental procedure
Prior to that he was in his usual state of health with no complaints
On physical exam he is nontoxic-appearing
Right lower abdomen is soft and nontender
I personally reviewed the CT angiogram images. My concern is that this represents the potential source of infection. Unclear if urologic input would be beneficial here given his history of kidney stones and proximity of the collection to the
ureter (? primary source). In the absence of an active stone I would suspect this is less likely. Would prefer to see if this collection is tappable/drainable (interventional radiology) although I doubt based on location and size. Otherwise
initial management with prolonged course of intravenous antibiotics and lifelong suppression. Appreciate ID input. Hoping to avoid explant of the fenestrated stent graft repair but if this initial treatment plan is not successful he may ultimately
need this.
I spoke to the patient in detail about this. Will follow.
Call with questions/concerns
Signed:
Darin Alicea III, MD
[facility]
[phone] (fnnb)
Original Note:
Consultation
Consultation Request
Date/Time Consultation Performed: 05/02/24
Requesting Provider: Hospitalist
Performing Provider: Carey Porter, EVALUATION SPECIALIST-C for Darin Alicea III, MD
Reason for Consultation: Bacteremia with history of fenestrated EVAR
Medical History
-
Chief Complaint: Bacteremia with fenestrated EVAR
History of Present Illness:
This is a 73-year-old male with significant past medical history for GERD, hypertension, hyperlipidemia, nephrolithiasis, and abdominal aortic aneurysm status post fenestrated endovascular aortic repair who presented to [facility] on
04/28/2024 with reports of ongoing fever and right-sided flank pain that radiated around abdomen to groin for roughly a week prior to presentation. Patient endorses that he has been doing well since surgery in August 2021 for abdominal aortic aneurysm
until roughly 2 weeks ago when he broke a front tooth and underwent dental repair of broken tooth. He notes that shortly after that roughly 1 to 2 days he began having full body aches, chills, malaise, and high fevers with Tmax reported at home of
103. He then also developed accompanying right sided flank pain that radiated to abdomen/lower groin which he states felt similar to his past kidney stones which is what led to ED evaluation. Patient admitted with bacteremia as blood cultures on
04/28/2024 positive for Staph aureus methicillin sensitive, vascular surgery has been consulted in regards to bacteremia with stent graft material of aorta. Patient reports he is feeling better since initiation of antibiotics but does have continued
right flank into right groin mild pain intermittently.
Past Medical History
Past Medical History: GERD, HTN and Other (Hyperlipidemia, abdominal aortic aneurysm status post aortic stent graft repair, nephrolithiasis)
Past Surgical History: Other (Percutaneous fenestrated aortic stent graft repair of juxtarenal abdominal aortic aneurysm 09/02/21 Darin Alicea III)
Social History
Tobacco: Non-Smoker
Alcohol: None
Drug: None
Living: With Family
Allergies / Home Medications
Allergy/AdvReac Type Severity Reaction Status Date / Time
No Known Allergies Allergy Verified 04/28/24 11:01
�Medication �Instructions �Recorded �Confirmed �Type
rosuvastatin 10 mg tablet 20 mg PO DAILY High cholesterol 08/22/21 04/28/24 History
valsartan 80 mg tablet 160 mg PO QPM Blood pressure 08/22/21 04/28/24 History
vitamin B complex 1 tab PO DAILY Supplement 08/25/21 04/28/24 History
acetaminophen 325 mg tablet 650 mg (2 x 325 mg) PO Q4HPRN PRN 09/03/21 04/28/24 Rx
mild pain or temp >/= 100.4F
aspirin 81 mg chewable tablet 81 mg PO DAILY #90 tabs 09/03/21 04/28/24 Rx
metoprolol succinate 50 mg 50 mg PO DAILY Blood Pressure 04/28/24 04/28/24 History
tablet,extended release 24 hr
(Toprol XL)
omeprazole 20 mg tablet,delayed 20 mg PO DAILY gerd 04/28/24 04/28/24 History
release
Review of Systems
-
History Source: Patient
Constitutional: Reports Fever, Fatigue and Chills
EENT: Reports No Symptoms
Respiratory: Reports No Symptoms
Cardiac: Reports No Symptoms
Vascular: Denies Leg Pain / Claudication
Abdomen/GI: Reports Abdominal Pain (Right-sided flank pain that was radiating down into his right sided groin)
: Reports Flank Pain (Right-sided flank pain that was radiating down into his right sided groin)
Musculoskeletal: Reports No Symptoms
Skin: Reports No Symptoms
Neurological: Reports No Symptoms
Endocrine: Reports No Symptoms
Physical Exam
Vital Signs
Temp Pulse Resp BP Pulse Ox
99.0 F 78 18 125/74 95
05/02/24 07:04 05/02/24 07:04 05/02/24 07:04 05/02/24 07:04 05/02/24 07:04
Lab Results
05/02/24 05:49
05/02/24 05:49
Physical Exam
General: No Apparent Distress
HEENT: Normocephalic, Anicteric and Atraumatic
Cardiac: Negative JVD
GI: Soft, Non Tender and Non Distended
Musculoskeletal: No Edema
Skin: Warm
Neuro: AO x 3
Assessment / Plan
-
Assessment: 73-year-old male admitted with fever leukocytosis with bacteremia and history of fenestrated endovascular aortic aneurysm repair
Plan:
Undertaking of removing fenestrated endovascular abdominal aortic aneurysm graft would be high risk and anatomically challenging, would advise for initial treatment of antibiotic suppression and routine surveillance prior to surgical removal, plan
reviewed with hospitalist and ID physician via [place] text
Would recommend urological consultation given evidence of renal calculus on CT to ensure urological obstruction is not playing a component to bacteremia
I performed this shared service with the attending. I evaluated the patient [id number] and have entered clinical documentation as shown in the encounter note. I performed the following component(s):�history and physical exam. Note that medical
decision making is not final until attested by vascular attending.
--- NOTE | 2024-05-02 08:57 | W.PN.ID1 ---
Date of Service
Date of Service: May 02, 2024
Today's Communication
- would proceed to GHISLAINE
- c/w cefazolin
- follow blood cultures for clearance
Assessment / Plan
MSSA bacteremia - sustained
Possible stent infection of AAA repair with developing abscess
Possible endocarditis
H/o AAA repair with stenting - 3 years ago
Prediabetes
- MSSA bacteremia - sustained at lease 04/28-04/30, repeat cultures q48 hours until persistently negative
- 05/01 blood cultures no growth to date
- TTE no valvular lesions, would proceed to GHISLAINE - discussed ith cardiology
- I would would drain the small collection adjacent to the stent if feasible. However given its size and location, I doubt drainage will be an option. Agree with IR consult for assessment.
- history of recent dental procedure is interesting, while MSSA generally not thought to be part of normal endodontic angie there are care reports of it being isolated and relatively sparse literature updating the original studies of what
constitutes normal endodontic angie; in my practice I would consider that a possible initial cause of bacteremia with secondary seeding fo the stent.
- S aureus generally not thought to cause ascending (ie starting in the bladder proceeding upward) UTIs, when seen in the urine its mostly felt to be a descending infection (filtered out of the blood from pre-existing bacteremia). A possible
exception would be patient with recent instrumentation of the system - not our patient. In this case the urine culture was negative, stone not obstructing and no evidence of recent stone passage, source unlikely to be the initial source
leading to secondary seeding. No objection to assessment with urology or removal of stone if they feel it is feasible, but I do not think it was the initial source or secondarily infected.
- This far out from the initial procedure perioperative contamination also very unlikely.
- c/w cefazolin - plan long course of IV therapy followed by suppression
- PICC line when bacteremia is persistently cleared
- follow clinically
Chief Complaint
-: Bacteremia (MSSA)
Subjective / Review of Systems
fever resolved
bp stable
echo without significant change
abdominal pain ongoing
Vital Signs / Physical Exam
Vital Signs
Vital Signs
Temp Pulse Resp BP Pulse Ox
99.0 F 78 18 125/74 95
05/02/24 07:04 05/02/24 07:04 05/02/24 07:04 05/02/24 07:04 05/02/24 07:04
Physical Exam
Constitutional: No Acute Distress
Cardiovascular: Regular Rate and S1/S2; Negative Murmur or Rub
Pulmonary: Clear and Symmetric; Negative Wheezes or Rales
Gastrointestinal: Soft, Non Tender, Non Distended and Normal Bowel Sounds
Skin: Warm and Dry; Negative Rash or Jaundice
Objective Data
Lab Data
Lab Results
05/02/24 05:49
05/02/24 05:49
Estimated Creat Clear 86 ml/min 05/02/24 05:49
Lactic Acid 1.6 mmol/L (0.7-2.0) 04/28/24 17:27
Total Bilirubin 0.7 mg/dl (0.2-1.3) 05/01/24 07:32
AST 35 U/L (17-59) 05/01/24 07:32
ALT 38 U/L (0-50) 05/01/24 07:32
Alkaline Phosphatase 177 U/L (38-126) H 05/01/24 07:32
Most recent labs reviewed.
Micro Results:
05/01/24 07:32 Blood Culture - Preliminary
Blood/Venous No Growth in 24 hours- Final report to follow
04/30/24 10:31 Blood Culture - Preliminary
Blood/Venous Positive culture in progress
Gram Stain - Preliminary
04/30/24 10:04 Blood Culture - Preliminary
Blood/Venous Positive culture in progress
Gram Stain - Preliminary
04/28/24 17:57 Blood Culture - Final
Blood/Venous S aureus-Methicillin Sensitive
Gram Stain - Final
04/28/24 17:27 Blood Culture - Final
Blood/Venous S aureus-Methicillin Sensitive
Gram Stain - Final
05/01/24 09:42 Blood Culture - Pending
Blood/Venous
04/28/24 11:10 Urine Culture - Final
Urine NO GROWTH
04/28/24 14:47 Influenza Types A & B (CANDACE) - Final
Nasal Swab Negative for Influenza A & B, NAAT
Negative results must be combined with clinical observations
and patient history.
Nucleic Acid Amplification test (NAAT)performed on the
[employer] platform.
Care Review
Plan reviewed with: Physician (Dr Ailcea and Dr Lui)
--- NOTE | 2024-05-02 09:00 | W.PN.HOSP.TC ---
Today's Communication/Plan
-
see bold
Assessment / Plan
Assessment / Plan
73-year-old man past medical history of
hypertension,
hyperlipidemia,
abdominal aortic aneurysm status post aortic stent graft repair,
nephrolithiasis,
GERD,
comes in with right-sided flank pain radiating around to the anterior abdomen and down to the groin for the past 6 days associated with fever.
A/P:
# Sepsis (fever, tachycardia, leukocytosis) POA
# Persistent staph aureus bacteremia, unclear source
Chest x-ray unremarkable, Influenza and COVID-negative
CT AP showed no acute pathology or obstructing calculi but there is 6 mm nonobstructing calculus in the upper pole of the right kidney
Appreciate ID input, antibiotics changed to ancef, GHISLAINE negative for vegetations
C/s cards for GHISLAINE, repeat blood cultures daily until documented clearance
#Right common iliac artery inflammation/edema, with possible developing fluid collection/abscess
CTA shows marked inflammatory change, edema and soft tissue thickening about the right common iliac artery, new/progressed from priors and suggestive of inflammatory or infectious vasculitis. Possible developing fluid collection/abscess along the
medial aspect of the right common iliac artery measures up to 2.0 x 1.9 x 2.2 cm
Appreciate vascular surgery input, recommend urology consult
# Right flank pain possibly secondary to nonobstructive kidney stone (renal colic) versus musculoskeletal
Consult urology, continue pain meds
# Essential hypertension
Continue metoprolol, valsartan with holding parameter
# Hyperlipidemia
Continue statin
# Abdominal aortic aneurysm status post repair
Consult vascular surgery, continue aspirin
# GERD
Continue omeprazole
DVT prophylaxis�subcu Lovenox
Full code
Updated daughter at bedside 05/02
Total time spent to see the patient on the floor, examine the patient, review data and lab results, discuss treatment plan with patient, nursing staff around 51 minutes.
Physical Exam
General: No acute distress
HEENT: Normocephalic, Atraumatic, EOMI, MMM
Respiratory: Clear to Auscultation bilaterally
Cardiac: Normal S1/S2, Regular Rate and Rhythm
GI: Soft, Nontender, Nondistended, Normal Bowel Sounds
Extremities: No Clubbing, Cyanosis, or Edema
Neuro: Nonfocal/Grossly Intact
Psych: Calm, Cooperative
Anticipated Discharge: > 48 hours
Subjective/Interval History
-
Date of Service: May 02, 2024
C/o right flank pain. No fever, no vomiting.
Objective Data
-
Labs:
Laboratory Results
05/02/24
05:49
WBC 10.1
Hgb 12.3 L
Hct 36.1 L
Plt Count 306
Sodium 135
Potassium 3.5
Chloride 101
Carbon Dioxide 23
BUN 10
Creatinine 0.8
Glucose 140 H
Calcium 8.2 L
Vital Signs:
Vital Signs
Temp Pulse Resp BP Pulse Ox
99.0 F 78 18 125/74 95
05/02/24 07:04 05/02/24 07:04 05/02/24 07:04 05/02/24 07:04 05/02/24 07:04
I&O
05/01/24 05/02/24 05/03/24
06:59 06:59 06:59
Intake Total 1929 975 / 975
Output Total 200 / 200 200 / 200
Balance 1730 / 1730 775 / 775
[2024-05-02] MEDS: CRESTOR 20 MG PO (09:26)
[2024-05-02] MEDS: VISBIOME 1 CAP PO (09:26)
[2024-05-02] MEDS: LOW STRENGTH ASPIRIN 81 MG PO (09:26)
[2024-05-02] MEDS: B COMPLEX w/VITAMIN C 1 CAPLET PO (09:26)
[2024-05-02] MEDS: TOPROL XL 50 MG PO (09:26)
[2024-05-02] MEDS: PROTONIX 40 MG PO (09:27)
--- NOTE | 2024-05-02 10:05 | CONS.URO ---
Consultation
-
Date/Time Consultation Performed: 05/02/24
Requesting Provider: Do
Performing Provider: Radu
Reason for Consultation: Right renal stone
Medical History
History of Present Illness
73 yo male presented to ED on 04/28/24 'right-sided flank pain radiating around to the anterior abdomen and down to the groin for the past 6 days associated with fever. He thought he was having a kidney stone. He was also having generalized
bodyaches for the past several days'
Past Medical History
Past Medical History: Other (hypertension, hyperlipidemia, abdominal aortic aneurysm s/p stenting, nephrolithiasis, GERD)
Past Surgical History: Other (08/2021: Percutaneous fenestrated aortic stent graft repair of juxtarenal abdominal aortic aneurysm)
Allergies/Home Medications
Allergies
Allergy/AdvReac Type Severity Reaction Status Date / Time
No Known Allergies Allergy Verified 04/28/24 11:01
Home Medications
�Medication �Instructions �Recorded �Confirmed �Type
rosuvastatin 10 mg tablet 20 mg PO DAILY High cholesterol 08/22/21 04/28/24 History
valsartan 80 mg tablet 160 mg PO QPM Blood pressure 08/22/21 04/28/24 History
vitamin B complex 1 tab PO DAILY Supplement 08/25/21 04/28/24 History
acetaminophen 325 mg tablet 650 mg (2 x 325 mg) PO Q4HPRN PRN 09/03/21 04/28/24 Rx
mild pain or temp >/= 100.4F
aspirin 81 mg chewable tablet 81 mg PO DAILY #90 tabs 09/03/21 04/28/24 Rx
metoprolol succinate 50 mg 50 mg PO DAILY Blood Pressure 04/28/24 04/28/24 History
tablet,extended release 24 hr
(Toprol XL)
omeprazole 20 mg tablet,delayed 20 mg PO DAILY gerd 04/28/24 04/28/24 History
release
Physical Exam
Vital Signs
Vital Signs
Temp Pulse Resp BP Pulse Ox
99.0 F 78 18 125/74 95
05/02/24 07:04 05/02/24 09:26 05/02/24 07:04 05/02/24 09:26 05/02/24 07:04
Lab / Testing Results
Laboratory Results
05/02/24 05:49
05/02/24 05:49
Assessment / Plan
-
1. 5-6 mm non-obstructive right renal stone
pain is unlikely to be of urologic origin as stone is NOT in ureter and urine cx did NOT demonstrate infection
Rec: no treatment of right renal stone is currently indicated
Data Reviewed
-
CT Scan: Image personally visualized and interpreted (CTs from 08/2023 and 04/2024 demonstrate a 5-6 mm non-obstructive right renal stone)
Ultrasound: Image personally visualized and interpreted (no obstruction of urinary tract)
Lab Data: Labs Reviewed (negative urine cx; MSSA in blood)
Old Records: Reviewed
--- NOTE | 2024-05-02 10:34 | CON.CAR ---
Addendum entered and electronically signed by Eze Plummer MD 05/02/24 12:06:
I saw and examined the patient.
The CHEMOTHERAPIST's note was reviewed and I agree with the note.
Comment:
73-year-old male with hypertension, hyperlipidemia, nephrolithiasis, and abdominal aortic aneurysm status post fenestrated endovascular aortic repair (2021, ) who presents with fever and flank pain found to have MSSA bacteremia and concern for
infectious vasculitis with possible developing fluid collection/abscess adjacent to right common iliac artery. Cardiology is consulted for consideration of GHISLAINE in the setting of MSSA bacteremia. On exam patient is well-appearing, cardiovascular
exam with regular rate and rhythm and no murmurs, lungs are clear to auscultation bilaterally, and he has no lower extremity edema. Labs are notable for blood cultures growing MSSA from 04/28 and 04/30. Cultures from 05/01 are pending. TTE from
05/01/2024 shows normal biventricular function, mild aortic regurgitation, ectatic ascending aorta and distal aortic arch. We will plan for GHISLAINE tomorrow to look for bacterial endocarditis. He should not have anything to eat past midnight.
Infectious disease is following and managing antibiotics. He was also seen by vascular surgery who noted that removing his graft would be very high risk and they would like to opt for antibiotic suppression with routine surveillance. He should be
continued on home medications for hypertension and peripheral vascular disease. We will continue to follow along. Recommendations discussed with hospitalist, infectious disease and vascular surgery via TT. Please call with additional questions or
concerns.
Original Note:
Consultation
Consultation Request
Date/Time Consultation Requested: 05/02/2024 09:15
Date/Time Consultation Performed: 05/02/2024 10:00
Requesting Provider: Dr. Dave Lui
Performing Provider: BURT Michelle for Dr. Plummer
Reason for Consultation: Persistent bacteremia
Medical History
-
Chief Complaint: Right flank pain
History of Present Illness:
Kel Smart is a 73-year-old male (known to Dr. Isidro Remy, his primary wedding day coordinator), with hypertension, dyslipidemia, AAA s/p TAVR, bilateral renal artery stenting and GERD who presented to the emergency department on 04/28/2024 with a chief
complaint of right flank pain. For several days prior to arrival, he had pain radiating from his anterior abdomen into his groin. He had an associated fever. He thought he had a kidney stone. He endorsed associated generalized body aches without
any upper respiratory symptoms. He took Tamiflu for 3 to 4 days because he thought perhaps he had the flu. He was diagnosed with sepsis as he had fever, tachycardia, and leukocytosis. The underlying infection was believed to be UTI. His blood
cultures were positive for MSSA. Infectious disease was consulted. Today, cardiology was consulted for persistent bacteremia. He had a transthoracic echocardiogram yesterday which was unremarkable. Cardiology was consulted for GHISLAINE evaluation.
The patient's daughter is at the bedside providing collateral information.
Past Medical History
Past Medical History: GERD, HTN, Hypercholesterolemia and Other (AAA s/p EVAR)
Past Surgical History: Tonsilectomy
Social History
Tobacco: Non-Smoker
Living: With Family
Employment: Retired
Family History
Family History: Reviewed & Not Pertinent
Allergies / Home Medications
Allergy/AdvReac Type Severity Reaction Status Date / Time
No Known Allergies Allergy Verified 04/28/24 11:01
�Medication �Instructions �Recorded �Confirmed �Type
rosuvastatin 10 mg tablet 20 mg PO DAILY High cholesterol 08/22/21 04/28/24 History
valsartan 80 mg tablet 160 mg PO QPM Blood pressure 08/22/21 04/28/24 History
vitamin B complex 1 tab PO DAILY Supplement 08/25/21 04/28/24 History
acetaminophen 325 mg tablet 650 mg (2 x 325 mg) PO Q4HPRN PRN 09/03/21 04/28/24 Rx
mild pain or temp >/= 100.4F
aspirin 81 mg chewable tablet 81 mg PO DAILY #90 tabs 09/03/21 04/28/24 Rx
metoprolol succinate 50 mg 50 mg PO DAILY Blood Pressure 04/28/24 04/28/24 History
tablet,extended release 24 hr
(Toprol XL)
omeprazole 20 mg tablet,delayed 20 mg PO DAILY gerd 04/28/24 04/28/24 History
release
Review of Systems
-
History Source: Patient
All other systems: Negative unless noted
Constitutional: Fever
EENT: No Symptoms
Respiratory: No Symptoms
Cardiac: No Symptoms
Abdomen/GI: No Symptoms
: Flank Pain
Musculoskeletal: No Symptoms
Skin: No Symptoms
Neurological: No Symptoms
Endocrine: No Symptoms
Hematologic/Lymphatic: No Symptoms
Physical Exam
Vital Signs
Temp Pulse Resp BP Pulse Ox
99.0 F 78 18 125/74 95
05/02/24 07:04 05/02/24 09:26 05/02/24 07:04 05/02/24 09:26 05/02/24 07:04
Lab Results
05/02/24 05:49
05/02/24 05:49
Physical Exam
General: Well Developed, Well Nourished, No Apparent Distress and Comfortable
HEENT: Normocephalic, Anicteric and Moist Mucous Membranes
Respiratory: Clear and Non Labored Respirations
Cardiac: S1/S2
Breast: Deferred by me
GI: Soft, Non Tender, Non Distended and Normal Bowel Sounds
Rectal: Deferred by Provider
Genito-urinary: Costovertebral Angle Tend (right)
Musculoskeletal: No Clubbing, No Cyanosis and No Edema
Skin: Warm and Dry
Neuro: AO x 3
Hematologic/Lymphatic: No Lymphadenopathy
Psych: Calm
Impression / Plan
-
IMPRESSION/PLAN: 73M with hypertension, dyslipidemia, AAA s/p TAVR, bilateral renal artery stenting and GERD who presented to the emergency department on 04/28/2024 with a chief complaint of right flank pain.
Primary wedding day coordinator: Dr. Isidro Remy
Sepsis, MSSA bacteremia
-TTE unremarkable yesterday, no murmur on exam
-GHISLAINE in a.m., patient and daughter agreeable, NPO after midnight
-Collection/abscess on CT, may need prolonged antibiotics regardless of GHISLAINE result
-ID following
Hypertension, stable, chronic, continue current medical therapy
Abdominal aortic aneurysm status post EVAR, Vascular surgery following
HLD, on rosuvastatin
Prediabetes, with hyperglycemia, per primary
Data Reviewed
-
EKG: Report Reviewed by me
Medical Tests (Nuc Med, Echo etc): Report Reviewed by me
Labs: Labs Reviewed by me
Old Records: Reviewed
--- NOTE | 2024-05-02 15:07 | CM ---
Chart reviewed for d/c planning and hospital course updates. Care ongoing at this time.
Pt cont. IV abx, ID following. Urology consulted, vasc surg consulted
CM will cont to follow for d/c planning
Plan: Anticipate home when stable; no poss needs, will cont to watch for any as hospitalization progresses
[2024-05-02 15:15] VITALS: BP 136/77
[2024-05-02] MEDS: LOVENOX 40 MG SC (17:22)
[2024-05-02] MEDS: DIOVAN 160 MG PO (17:23)
[2024-05-02 23:30] VITALS: BP 121/69
[2024-05-03] MEDS: PERCOCET 5/325 1 TABLET PO ×6 (01:43→21:36)
[2024-05-03 07:10] VITALS: BP 138/88
--- NOTE | 2024-05-03 07:59 | W.PN.HOSP.TC ---
Today's Communication/Plan
-
see bold
Assessment / Plan
Assessment / Plan
73-year-old man past medical history of
hypertension,
hyperlipidemia,
abdominal aortic aneurysm status post aortic stent graft repair,
nephrolithiasis,
GERD,
comes in with right-sided flank pain radiating around to the anterior abdomen and down to the groin for the past 6 days associated with fever.
A/P:
# Sepsis (fever, tachycardia, leukocytosis) POA
# Persistent staph aureus bacteremia, unclear source
# Possible stent infection of AAA repair with developing abscess
# Possible endocarditis
Chest x-ray unremarkable, Influenza and COVID-negative
CT AP showed no acute pathology or obstructing calculi but there is 6 mm nonobstructing calculus in the upper pole of the right kidney
Appreciate ID input, antibiotics changed to ancef, GHISLAINE negative for vegetations
Patient will need a long course of IV antibiotics followed by suppression, PICC line can be placed when bacteremia has persistently cleared
#Right common iliac artery inflammation/edema, with possible developing fluid collection/abscess
#Abdominal aortic aneurysm status post aortobiiliac stent graft with stable excluded aneurysm sac
#R flank pain
CTA shows marked inflammatory change, edema and soft tissue thickening about the right common iliac artery, new/progressed from priors and suggestive of inflammatory or infectious vasculitis. Possible developing fluid collection/abscess along the
medial aspect of the right common iliac artery measures up to 2.0 x 1.9 x 2.2 cm
Appreciate vascular surgery input, 'explanting the fenestrated stent graft is a major surgery for him so ideally would like to try ABX and possible drainage'
IR unable to drain, continue pain meds
# Right nonobstructive kidney stone (renal colic) versus musculoskeletal
Appreciate urology input, his nonobstructive right kidney stone is not causing his right flank pain
#Prediabetes
Hemoglobin A1c 6.4, patient informed of his diagnosis
Recommend dietary modification
# Essential hypertension
Continue metoprolol, valsartan with holding parameter
# Hyperlipidemia
Continue statin
# GERD
Continue omeprazole
DVT prophylaxis�subcu Lovenox
Full code
Updated daughter at bedside 05/02
Updated niece on phone 05/03
Total time spent to see the patient on the floor, examine the patient, review data and lab results, discuss treatment plan with patient, nursing staff around 50 minutes.
Physical Exam
General: No acute distress
HEENT: Normocephalic, Atraumatic, EOMI, MMM
Respiratory: Clear to Auscultation bilaterally
Cardiac: Normal S1/S2, Regular Rate and Rhythm
GI: Soft, Nontender, Nondistended, Normal Bowel Sounds
Extremities: No Clubbing, Cyanosis, or Edema
Neuro: Nonfocal/Grossly Intact
Psych: Calm, Cooperative
Anticipated Discharge: > 48 hours
Subjective/Interval History
-
Date of Service: May 03, 2024
Patient continues to have right flank pain. No chest pain, no shortness of breath. No fever, no vomiting. Denies constipation.
Objective Data
-
Labs:
Laboratory Results
05/03/24
06:00
WBC Pending
Hgb Pending
Hct Pending
Plt Count Pending
Sodium Pending
Potassium Pending
Chloride Pending
Carbon Dioxide Pending
BUN Pending
Creatinine Pending
Glucose Pending
Calcium Pending
Vital Signs:
Vital Signs
Temp Pulse Resp BP Pulse Ox
98.4 F 82 18 121/69 94
05/02/24 23:30 05/02/24 23:30 05/02/24 23:30 05/02/24 23:30 05/02/24 23:30
I&O
05/02/24 05/03/24 05/04/24
06:59 06:59 06:59
Intake Total 975 / 975 840 / 840
Output Total 200 / 200
Balance 775 / 775 840 / 840
[2024-05-03] MEDS: ANCEF 10 IV ×2 (08:02→15:02)
[2024-05-03] MEDS: VISBIOME 1 CAP PO (08:04)
[2024-05-03] MEDS: TOPROL XL 50 MG PO (08:04)
[2024-05-03] MEDS: PROTONIX 40 MG PO (08:04)
[2024-05-03] MEDS: CRESTOR 20 MG PO (08:04)
[2024-05-03] MEDS: B COMPLEX w/VITAMIN C 1 CAPLET PO (08:04)
[2024-05-03] MEDS: LOW STRENGTH ASPIRIN 81 MG PO (08:04)
--- NOTE | 2024-05-03 10:12 | W.PN.CD ---
Today's Communication / Plan
-
No vegetation appreciated on GHISLAINE
We will sign off please call with questions/concerns.
Impression / Plan
-
IMPRESSION/PLAN: 73M with hypertension, dyslipidemia, AAA s/p TAVR, bilateral renal artery stenting and GERD who presented to the emergency department on 04/28/2024 with a chief complaint of right flank pain.
Primary quality control engineering technician: Dr. Isidro Remy
Sepsis, MSSA bacteremia
-TTE unremarkable yesterday, no murmur on exam
-GHISLAINE did not appreciate any vegetation, report below
-Collection/abscess on CT, may need prolonged antibiotics regardless of GHISLAINE result
-ID following
Hypertension, stable, chronic, continue current medical therapy
Abdominal aortic aneurysm status post EVAR, Vascular surgery following
HLD, on rosuvastatin
Prediabetes, with hyperglycemia, per primary
Subjective: Feels OK
GHISLAINE' CONCLUSIONS
Normal LV size and function without regional wall motion abnormalities.
LVEF is 60-65% by visual estimation.
Small perimembranous VSD noted.
Normal RV size and function.
Mild to moderate MR.
Mild AI.
No obvious vegetation appreciated.
Possible small PFO on color flow Doppler.
Compared to prior from May 01, 2024, small perimembranous VSD is noted as
well as possible small PFO.
Physical Exam
Vital Signs/Labs
Vital Signs
Temp Pulse Resp BP Pulse Ox
98.7 F 75 18 138/88 97
05/03/24 07:10 05/03/24 07:10 05/03/24 07:10 05/03/24 07:10 05/03/24 07:10
Magnesium 1.9 mg/dl (1.6-2.3) 05/01/24 07:32
Physical Exam
Constitutional: No acute distress
EENT: Anicteric
Cardiovascular: Rhythm & rate is regular and Pedal edema is absent
Respiratory: Respiratory effort normal and Lungs clear to auscul.
GI: Soft
Neuro/Psych: AO x 3
Data Reviewed
-
Date of Service: May 03, 2024
EKG: Tracing Personally Visualized and interpreted (sr)
Echo: Tracing Personally Visualized and interpreted and Report Reviewed by me
Labs: Labs Reviewed by me
[2024-05-03 11:11] VITALS: BP 136/86
[2024-05-03 11:24] LABS: Hematocrit 35.9 % (39.0-52.0); Hemoglobin 12.5 g/dL (13.0-18.0); Mean Corp Hgb Conc. 34.8 g/dL (33.0-37.0); Mean Corpuscular Volume 94.7 fL (80.0-94.0); Mean Platelet Volume 9.6 fL (7.4-10.4); Platelet Count 366 10^3/uL (130-400); Red Blood Cell Count 3.79 10^6/uL (4.70-6.10); Red Cell Dist. Width 12.8 % (11.5-14.5); White Blood Cell Count 9.8 10^3/uL (4.8-10.8)
--- NOTE | 2024-05-03 11:38 | W.PN.ID1 ---
Date of Service
Date of Service: May 03, 2024
Today's Communication
- c/w cefazolin - plan long course of IV therapy followed by suppression
- PICC line when bacteremia is persistently cleared
Assessment / Plan
MSSA bacteremia - sustained
Possible stent infection of AAA repair with developing abscess
Possible endocarditis
H/o AAA repair with stenting - 3 years ago
Prediabetes
- spoke with IR today, collection is not approachable percutaneously
- plan attempt of medical management
- MSSA bacteremia - sustained at lease 04/28-05/01, repeat cultures q48 hours until persistently negative
- 05/03 blood cultures - 1 set done thus far - communicated with RN that second set is necessary
- TTE no valvular lesions, GHISLAINE nonrevealing
- c/w cefazolin - plan long course of IV therapy followed by suppression
- PICC line when bacteremia is persistently cleared
- follow clinically
Chief Complaint
-: Bacteremia (MSSA)
Subjective / Review of Systems
afebrile
bp stable
tolerating current therapies
GHISLAINE nonrevealing
complains of ongoing flank pain
Vital Signs / Physical Exam
Vital Signs
Vital Signs
Temp Pulse Resp BP Pulse Ox
98.7 F 80 16 136/86 97
05/03/24 11:11 05/03/24 11:11 05/03/24 11:11 05/03/24 11:11 05/03/24 11:11
Physical Exam
Constitutional: No Acute Distress
Cardiovascular: Regular Rate and S1/S2; Negative Murmur or Rub
Pulmonary: Clear and Symmetric; Negative Wheezes or Rales
Gastrointestinal: Soft, Non Tender, Non Distended and Normal Bowel Sounds
Skin: Warm and Dry; Negative Rash or Jaundice
Objective Data
Lab Data
Lab Results
05/03/24 11:14
Estimated Creat Clear 86 ml/min 05/02/24 05:49
Lactic Acid 1.6 mmol/L (0.7-2.0) 04/28/24 17:27
Total Bilirubin 0.7 mg/dl (0.2-1.3) 05/01/24 07:32
AST 35 U/L (17-59) 05/01/24 07:32
ALT 38 U/L (0-50) 05/01/24 07:32
Alkaline Phosphatase 177 U/L (38-126) H 05/01/24 07:32
Most recent labs reviewed.
Micro Results:
05/03/24 11:14 Blood Culture - Pending
Blood/Venous
05/01/24 09:42 Blood Culture - Preliminary
Blood/Venous No Growth in 48 hours- Final report to follow
04/30/24 10:04 Blood Culture - Preliminary
Blood/Venous S aureus-Methicillin Sensitive
Gram Stain - Preliminary
05/01/24 07:32 Blood Culture - Preliminary
Blood/Venous Positive culture in progress
Gram Stain - Preliminary
04/30/24 10:31 Blood Culture - Preliminary
Blood/Venous S aureus-Methicillin Sensitive
Gram Stain - Preliminary
04/28/24 17:57 Blood Culture - Final
Blood/Venous S aureus-Methicillin Sensitive
Gram Stain - Final
04/28/24 17:27 Blood Culture - Final
Blood/Venous S aureus-Methicillin Sensitive
Gram Stain - Final
04/28/24 11:10 Urine Culture - Final
Urine NO GROWTH
04/28/24 14:47 Influenza Types A & B ([facility]) - Final
Nasal Swab Negative for Influenza A & B, NAAT
Negative results must be combined with clinical observations
and patient history.
Nucleic Acid Amplification test (NAAT)performed on the
[employer] platform.
[2024-05-03 11:50] LABS: Blood Urea Nitrogen 10 mg/dl (9-20); Calcium 8.5 mg/dl (8.4-10.2); Carbon Dioxide 24 mmol/L (22-30); Chloride 103 mmol/L (98-107); Estimated Creatinine Clearance 98 ml/min; Glucose 123 mg/dl (70-99); Potassium 3.8 mmol/L (3.5-5.1); Sodium 136 mmol/L (135-145); eGFR > 60.00
[2024-05-03] MEDS: MORPHINE SULFATE 1 MG IV (12:49)
[2024-05-03 15:10] VITALS: BP 136/78
[2024-05-03] MEDS: LOVENOX 40 MG SC (17:06)
[2024-05-03] MEDS: DIOVAN 160 MG PO (17:06)
--- NOTE | 2024-05-03 18:04 | PTCARENOTE ---
Patient s/p GHISLAINE from this am, awake and alert . No c/o chest pain . Continues with c/o right sided abd pain that extends around to his back , Percocet given as requested with some short term relief. Did try IV Morphine 1 mg x1 and patient felt
that percocet worked best. Appetite poor, did eat lunch today 100% but nothing otherwise. Call wilkerson in reach.
[2024-05-03 22:10] VITALS: BP 145/92
[2024-05-03 22:20] LABS: Glucose - Point of Care 116 mg/dl (70-99)
[2024-05-03 23:42] VITALS: BP 135/79
[2024-05-04] MEDS: ANCEF 10 IV ×3 (00:56→15:25)
[2024-05-04] MEDS: PERCOCET 5/325 1 TABLET PO ×4 (00:57→12:13)
[2024-05-04 03:17] VITALS: BMI 25.0
--- NOTE | 2024-05-04 06:40 | PTCARENOTE ---
Last night, 05/03/24 @ approx 2200, patient had an episode of forgetfulness about a discussion we had about his IV abx about 5-10 minutes prior. Patient said he wasn't sure if it was related to the pain medication. Patient was alert and oriented x 3
after this episode. Denied having any other symptoms other than abdominal pain. Vitals were 145/92, HR 78, RR 16, Temp 98.9, and O2 sat 96% room air. Accucheck 116. Patient did not have another episode the rest of the night.
[2024-05-04 07:30] VITALS: BP 167/99
[2024-05-04] MEDS: PROTONIX 40 MG PO (08:33)
[2024-05-04] MEDS: VISBIOME 1 CAP PO (08:33)
[2024-05-04] MEDS: B COMPLEX w/VITAMIN C 1 CAPLET PO (08:33)
[2024-05-04] MEDS: TOPROL XL 50 MG PO (08:33)
[2024-05-04] MEDS: LOW STRENGTH ASPIRIN 81 MG PO (08:33)
[2024-05-04] MEDS: CRESTOR 20 MG PO (08:33)
--- NOTE | 2024-05-04 09:15 | W.PN.HOSP.TC ---
Today's Communication/Plan
-
see bold
Assessment / Plan
Assessment / Plan
73-year-old man past medical history of
hypertension,
hyperlipidemia,
abdominal aortic aneurysm status post aortic stent graft repair,
nephrolithiasis,
GERD,
comes in with right-sided flank pain radiating around to the anterior abdomen and down to the groin for the past 6 days associated with fever.
A/P:
# Sepsis (fever, tachycardia, leukocytosis) POA
# Persistent staph aureus bacteremia, unclear source
# Possible stent infection of AAA repair with developing abscess
# Possible endocarditis
Chest x-ray unremarkable, Influenza and COVID-negative
CT AP showed no acute pathology or obstructing calculi but there is 6 mm nonobstructing calculus in the upper pole of the right kidney
Appreciate ID input, antibiotics changed to ancef, GHISLAINE negative for vegetations
Patient will need a long course of IV antibiotics followed by suppression, PICC line can be placed when bacteremia has persistently cleared
#Right common iliac artery inflammation/edema, with possible developing fluid collection/abscess
#Abdominal aortic aneurysm status post aortobiiliac stent graft with stable excluded aneurysm sac
#R flank pain
CTA shows marked inflammatory change, edema and soft tissue thickening about the right common iliac artery, new/progressed from priors and suggestive of inflammatory or infectious vasculitis. Possible developing fluid collection/abscess along the
medial aspect of the right common iliac artery measures up to 2.0 x 1.9 x 2.2 cm
Appreciate vascular surgery input, 'explanting the fenestrated stent graft is a major surgery for him so ideally would like to try ABX and possible drainage'
IR unable to drain, continue pain meds
Follow-up with Dr. Alicea outpatient for repeat abdominal CTA in 4-6 weeks
# Right nonobstructive kidney stone (renal colic) versus musculoskeletal
Appreciate urology input, his nonobstructive right kidney stone is not causing his right flank pain
#Prediabetes
Hemoglobin A1c 6.4, patient informed of his diagnosis
Recommend dietary modification
# Essential hypertension
Continue metoprolol, valsartan with holding parameter
# Hyperlipidemia
Continue statin
# GERD
Continue omeprazole
DVT prophylaxis�subcu Lovenox
Full code
Updated daughter at bedside 05/02
Updated niece on phone 05/03
Total time spent to see the patient on the floor, examine the patient, review data and lab results, discuss treatment plan with patient, nursing staff around 40 minutes.
Physical Exam
General: No acute distress
HEENT: Normocephalic, Atraumatic, EOMI, MMM
Respiratory: Clear to Auscultation bilaterally
Cardiac: Normal S1/S2, Regular Rate and Rhythm
GI: Soft, Nontender, Nondistended, Normal Bowel Sounds
Extremities: No Clubbing, Cyanosis, or Edema
Neuro: Nonfocal/Grossly Intact
Psych: Calm, Cooperative
Anticipated Discharge: 24 - 48 hours
Subjective/Interval History
-
Date of Service: May 04, 2024
Patient continues to have right flank pain. No fever, no vomiting. No chest pain, no shortness of breath.
Objective Data
-
Vital Signs:
Vital Signs
Temp Pulse Resp BP Pulse Ox
99.0 F 73 20 167/99 98
05/04/24 07:30 05/04/24 07:30 05/04/24 07:30 05/04/24 07:30 05/04/24 07:30
I&O
05/03/24 05/04/24 05/05/24
06:59 06:59 06:59
Intake Total 840 / 840 700 / 700
Balance 840 / 840 700 / 700
--- NOTE | 2024-05-04 09:39 | W.PN.ID1 ---
Date of Service
Date of Service: May 04, 2024
Today's Communication
- c/w cefazolin - plan at least 6 week course of IV therapy followed by suppression
- PICC line when bacteremia is persistently cleared
Assessment / Plan
MSSA bacteremia - sustained
Possible stent infection of AAA repair with developing abscess
Possible endocarditis
H/o AAA repair with stenting - 3 years ago
Prediabetes
- spoke with IR today, collection is not approachable percutaneously
- plan attempt of medical management
- MSSA bacteremia - sustained at lease 04/28-05/01, repeat cultures q48 hours until persistently negative
- 05/03 blood cultures - 1 set done thus far - communicated with RN that second set is necessary
- TTE no valvular lesions, GHISLAINE nonrevealing
- c/w cefazolin - plan at least 6 week course of IV therapy followed by suppression
- PICC line when bacteremia is persistently cleared
- may consider outpatient referral to pain management
- follow clinically
Chief Complaint
-: Bacteremia (MSSA)
Subjective / Review of Systems
afebrile
bp stable
Vital Signs / Physical Exam
Vital Signs
Vital Signs
Temp Pulse Resp BP Pulse Ox
99.0 F 73 20 167/99 98
05/04/24 07:30 05/04/24 07:30 05/04/24 07:30 05/04/24 07:30 05/04/24 07:30
Objective Data
Lab Data
Lab Results
05/03/24 11:14
05/03/24 11:14
Estimated Creat Clear 98 ml/min 05/03/24 11:14
Lactic Acid 1.6 mmol/L (0.7-2.0) 04/28/24 17:27
Total Bilirubin 0.7 mg/dl (0.2-1.3) 05/01/24 07:32
AST 35 U/L (17-59) 05/01/24 07:32
ALT 38 U/L (0-50) 05/01/24 07:32
Alkaline Phosphatase 177 U/L (38-126) H 05/01/24 07:32
Most recent labs reviewed.
Blood Culture Final 05/01/24-1019
Positive for S aureus-Methicillin Sensitive.
Performed by PCR methodology.
Organism 1 S aureus-Methicillin Sensitive
1. S aureus-Methicillin Sensitive
M.I.C. RX
--------- ---
Amoxicillin/Potas. Clavulanate <=4/2 S
Ampicillin <=2 R
Clindamycin <=0.5 R
This isolate is presumed to be resistant based on the
detection of inducible clindamycin resistance. Clindamycin
may still be effective in some patients.
Gentamicin <=4 S
Erythromycin >4 R
Levofloxacin >4 R
Oxacillin <=0.25 S
Tetracycline <=4 S
Trimethoprim/Sulfamethoxazole <=0.5/9.5 S
Vancomycin 1 S
Micro Results:
05/01/24 07:32 Blood Culture - Preliminary
Blood/Venous S aureus-Methicillin Sensitive
Gram Stain - Preliminary
05/03/24 12:31 Blood Culture - Pending
Blood/Venous
05/03/24 11:14 Blood Culture - Pending
Blood/Venous
05/01/24 09:42 Blood Culture - Preliminary
Blood/Venous No Growth in 48 hours- Final report to follow
04/30/24 10:04 Blood Culture - Preliminary
Blood/Venous S aureus-Methicillin Sensitive
Gram Stain - Preliminary
04/30/24 10:31 Blood Culture - Preliminary
Blood/Venous S aureus-Methicillin Sensitive
Gram Stain - Preliminary
04/28/24 17:57 Blood Culture - Final
Blood/Venous S aureus-Methicillin Sensitive
Gram Stain - Final
04/28/24 17:27 Blood Culture - Final
Blood/Venous S aureus-Methicillin Sensitive
Gram Stain - Final
04/28/24 11:10 Urine Culture - Final
Urine NO GROWTH
04/28/24 14:47 Influenza Types A & B ([facility]) - Final
Nasal Swab Negative for Influenza A & B, NAAT
Negative results must be combined with clinical observations
and patient history.
Nucleic Acid Amplification test (NAAT)performed on the
[employer] platform.
[2024-05-04] MEDS: PERCOCET 5/325 2 TABLET PO ×2 (15:23→20:42)
[2024-05-04 15:59] VITALS: BP 145/96
[2024-05-04] MEDS: DIOVAN 160 MG PO (17:07)
[2024-05-04] MEDS: LOVENOX 40 MG SC (17:07)
--- NOTE | 2024-05-04 17:14 | PTCARENOTE ---
Patient stated 2 Percocet was much more effective than 1 for pain control . Resting quietly at present .
[2024-05-04 23:03] VITALS: BP 139/96
[2024-05-05] MEDS: ANCEF 10 IV ×3 (00:41→15:52)
[2024-05-05] MEDS: PERCOCET 5/325 1 TABLET PO ×2 (01:45→15:52)
[2024-05-05] MEDS: PERCOCET 5/325 2 TABLET PO ×3 (05:42→20:37)
[2024-05-05 07:30] VITALS: BP 130/83
[2024-05-05] MEDS: B COMPLEX w/VITAMIN C 1 CAPLET PO (07:51)
[2024-05-05] MEDS: PROTONIX 40 MG PO (07:51)
[2024-05-05] MEDS: CRESTOR 20 MG PO (07:51)
[2024-05-05] MEDS: VISBIOME 1 CAP PO (07:51)
[2024-05-05] MEDS: LOW STRENGTH ASPIRIN 81 MG PO (07:51)
[2024-05-05] MEDS: TOPROL XL 50 MG PO (07:51)
--- NOTE | 2024-05-05 08:57 | W.PN.HOSP.TC ---
Today's Communication/Plan
-
see bold
Assessment / Plan
Assessment / Plan
73-year-old man past medical history of
hypertension,
hyperlipidemia,
abdominal aortic aneurysm status post aortic stent graft repair,
nephrolithiasis,
GERD,
comes in with right-sided flank pain radiating around to the anterior abdomen and down to the groin for the past 6 days associated with fever.
A/P:
# Sepsis (fever, tachycardia, leukocytosis) POA
# Persistent staph aureus bacteremia, unclear source
# Possible stent infection of AAA repair with developing abscess
# Possible acute endocarditis
Chest x-ray unremarkable, Influenza and COVID-negative
CT AP showed no acute pathology or obstructing calculi but there is 6 mm nonobstructing calculus in the upper pole of the right kidney
Appreciate ID input, antibiotics changed to ancef, GHISLAINE negative for vegetations
Patient will need a long course of IV antibiotics followed by suppression, PICC line can be placed when bacteremia has persistently cleared
#Right common iliac artery inflammation/edema, with possible developing fluid collection/abscess
#Abdominal aortic aneurysm status post aortobiiliac stent graft with stable excluded aneurysm sac
#R flank pain
CTA shows marked inflammatory change, edema and soft tissue thickening about the right common iliac artery, new/progressed from priors and suggestive of inflammatory or infectious vasculitis. Possible developing fluid collection/abscess along the
medial aspect of the right common iliac artery measures up to 2.0 x 1.9 x 2.2 cm
Appreciate vascular surgery input, 'explanting the fenestrated stent graft is a major surgery for him so ideally would like to try ABX and possible drainage'
IR unable to drain, continue pain meds
Follow-up with Dr. Alicea outpatient for repeat abdominal CTA in 4-6 weeks
# Right nonobstructive kidney stone (renal colic) versus musculoskeletal
Appreciate urology input, his nonobstructive right kidney stone is not causing his right flank pain
#Prediabetes
Hemoglobin A1c 6.4, patient informed of his diagnosis
Recommend dietary modification
# Essential hypertension
Continue metoprolol, valsartan with holding parameter
# Hyperlipidemia
Continue statin
# GERD
Continue omeprazole
DVT prophylaxis�subcu Lovenox
Full code
Updated daughter at bedside 05/02
Updated niece on phone 05/03
Updated daughter at bedside 05/05
Total time spent to see the patient on the floor, examine the patient, review data and lab results, discuss treatment plan with patient, nursing staff around 35 minutes.
Physical Exam
General: No acute distress
HEENT: Normocephalic, Atraumatic, EOMI, MMM
Respiratory: Clear to Auscultation bilaterally
Cardiac: Normal S1/S2, Regular Rate and Rhythm
GI: Soft, Nontender, Nondistended, Normal Bowel Sounds
Extremities: No Clubbing, Cyanosis, or Edema
Neuro: Nonfocal/Grossly Intact
Psych: Calm, Cooperative
Anticipated Discharge: 24 - 48 hours
Subjective/Interval History
-
Date of Service: May 05, 2024
Patient continues to have right flank pain. It is better controlled on oxycodone 10 mg. No fever, no vomiting.
Objective Data
-
Vital Signs:
Vital Signs
Temp Pulse Resp BP Pulse Ox
98.5 F 71 18 130/83 97
05/05/24 07:30 05/05/24 07:30 05/05/24 07:30 05/05/24 07:30 05/05/24 07:30
I&O
05/04/24 05/05/24 05/06/24
06:59 06:59 06:59
Intake Total 700 / 700 720 / 720
Balance 700 / 700 720 / 720
--- NOTE | 2024-05-05 11:11 | PN.CDI ---
CDI
- -
CDI:
Physician Documentation Request
Admit Date: 04/28/24 20:11
Dear Doctor Do,
Please review the following and provide your response in the progress notes.
Clinical Indicators:
Pt admitted with MSSA Sepsis /Possible Stent infection /Abscess / Endocarditis
Progress note 05/03 & 05/04, ' # Possible stent infection of AAA repair with developing abscess Possible endocarditis...Appreciate ID input, antibiotics changed to ancef, GHISLAINE negative for vegetationsPatient will need a long course of IV antibiotics
followed by suppression, PICC line can be placed when bacteremia has persistently cleared.'
ID progress note 05/03, ' Possible stent infection of AAA repair with developing abscess Possible endocarditis...'
Clarify which of the following accurately represents the suspected acuity of the ( Endocarditis ).
Acute
Chronic
Acute on Chronic
Other ( please specify)
Use of terms such as suspected, likely, concern for, or probable (associated with a specific diagnosis that is being evaluated, monitored, or treated as if it exists) are acceptable and can be coded in the inpatient setting, when documented at the
time of discharge.
Thank you,
Gila Thrasher RN
CDI Specialist
[facility]
Please use your independent medical judgment in providing your response.
[2024-05-05 15:00] VITALS: BP 127/86
--- NOTE | 2024-05-05 15:35 | W.PN.ID1 ---
Date of Service
Date of Service: May 05, 2024
Today's Communication
Continue antibiotics per
Assessment / Plan
MSSA bacteremia - sustained
Possible stent infection of AAA repair with developing abscess
Possible endocarditis
H/o AAA repair with stenting - 3 years ago
Prediabetes
- previously discussed with IR, collection is not approachable percutaneously
- plan attempt of medical management
- MSSA bacteremia - sustained at lease 04/28-05/01, repeat cultures q48 hours until persistently negative
- 05/03 blood cultures - 1 set done thus far - communicated with RN that second set is necessary
- TTE no valvular lesions, GHISLAINE nonrevealing
- c/w cefazolin - plan at least 6 week course of IV therapy followed by suppression
- PICC line when bacteremia is persistently cleared
- may consider outpatient referral to pain management following discharge.
- follow clinically
Chief Complaint
-: Bacteremia (MSSA)
Subjective / Review of Systems
Review of Systems: No Fever, No Chills, No Chest Pain and No Abdominal Pain
Vital Signs / Physical Exam
Vital Signs
Vital Signs
Temp Pulse Resp BP Pulse Ox
98.5 F 71 18 130/83 97
05/05/24 07:30 05/05/24 07:30 05/05/24 07:30 05/05/24 07:30 05/05/24 07:50
Physical Exam
Constitutional: No Acute Distress, Comfortable and Non-toxic
Eyes: Sclera Anicteric
Cardiovascular: S1/S2; Negative S3/S4
Pulmonary: Negative Non Labored
Neurological: Awake and Alert
Psychological: Calm
Objective Data
Lab Data
Lab Results
05/03/24 11:14
05/03/24 11:14
Estimated Creat Clear 98 ml/min 05/03/24 11:14
Lactic Acid 1.6 mmol/L (0.7-2.0) 04/28/24 17:27
Total Bilirubin 0.7 mg/dl (0.2-1.3) 05/01/24 07:32
AST 35 U/L (17-59) 05/01/24 07:32
ALT 38 U/L (0-50) 05/01/24 07:32
Alkaline Phosphatase 177 U/L (38-126) H 05/01/24 07:32
Most recent labs reviewed.
Micro Results:
05/03/24 12:31 Blood Culture - Preliminary
Blood/Venous No Growth in 48 hours- Final report to follow
05/03/24 11:14 Blood Culture - Preliminary
Blood/Venous No Growth in 48 hours- Final report to follow
05/05/24 09:59 Blood Culture - Pending
Blood/Venous
05/01/24 09:42 Blood Culture - Preliminary
Blood/Venous No Growth in 4 days- Final report to follow
05/05/24 09:07 Blood Culture - Pending
Blood/Venous
05/01/24 07:32 Blood Culture - Preliminary
Blood/Venous S aureus-Methicillin Sensitive
Gram Stain - Preliminary
04/30/24 10:04 Blood Culture - Preliminary
Blood/Venous S aureus-Methicillin Sensitive
Gram Stain - Preliminary
04/30/24 10:31 Blood Culture - Preliminary
Blood/Venous S aureus-Methicillin Sensitive
Gram Stain - Preliminary
04/28/24 17:57 Blood Culture - Final
Blood/Venous S aureus-Methicillin Sensitive
Gram Stain - Final
04/28/24 17:27 Blood Culture - Final
Blood/Venous S aureus-Methicillin Sensitive
Gram Stain - Final
04/28/24 11:10 Urine Culture - Final
Urine NO GROWTH
04/28/24 14:47 Influenza Types A & B (CANDACE) - Final
Nasal Swab Negative for Influenza A & B, NAAT
Negative results must be combined with clinical observations
and patient history.
Nucleic Acid Amplification test (NAAT)performed on the
[employer] platform.
--- NOTE | 2024-05-05 15:46 | CM ---
CM reviewed chart, per chart- patient will need course of home IV antibiotics, PICC line when bacteremia persistently cleared. CM will continue to follow for all discharge planning needs.
Plan; will require home IV antibiotics when stable for d/c.
[2024-05-05] MEDS: LOVENOX 40 MG SC (17:13)
[2024-05-05] MEDS: DIOVAN 160 MG PO (17:13)
[2024-05-05 23:15] VITALS: BP 108/75
[2024-05-06] MEDS: ANCEF 10 IV ×3 (00:31→15:44)
[2024-05-06] MEDS: PERCOCET 5/325 2 TABLET PO ×5 (00:35→18:35)
[2024-05-06 07:00] VITALS: BP 128/78
[2024-05-06] MEDS: CRESTOR 20 MG PO (08:58)
[2024-05-06] MEDS: VISBIOME 1 CAP PO (08:58)
[2024-05-06] MEDS: B COMPLEX w/VITAMIN C 1 CAPLET PO (08:58)
[2024-05-06] MEDS: LOW STRENGTH ASPIRIN 81 MG PO (08:58)
[2024-05-06] MEDS: PROTONIX 40 MG PO (08:58)
[2024-05-06] MEDS: TOPROL XL 50 MG PO (08:59)
--- NOTE | 2024-05-06 09:15 | W.PN.HOSP.TC ---
Today's Communication/Plan
-
Insert PICC tomorrow
Discharge Wednesday
Assessment / Plan
Assessment / Plan
73-year-old man past medical history of
hypertension,
hyperlipidemia,
abdominal aortic aneurysm status post aortic stent graft repair,
nephrolithiasis,
GERD,
comes in with right-sided flank pain radiating around to the anterior abdomen and down to the groin for the past 6 days associated with fever.
A/P:
# Sepsis (fever, tachycardia, leukocytosis) POA
# Persistent staph aureus bacteremia, unclear source
# Possible stent infection of AAA repair with developing abscess
# Possible acute endocarditis
Chest x-ray unremarkable, Influenza and COVID-negative
CT AP showed no acute pathology or obstructing calculi but there is 6 mm nonobstructing calculus in the upper pole of the right kidney
Appreciate ID input, antibiotics changed to ancef, GHISLAINE negative for vegetations
Patient will need a long course of IV antibiotics followed by suppression
Plan for PICC placement on Wednesday, and discharge on Wednesday once IV antibiotics have been set up
#Right common iliac artery inflammation/edema, with possible developing fluid collection/abscess
#Abdominal aortic aneurysm status post aortobiiliac stent graft with stable excluded aneurysm sac
#R flank pain
CTA shows marked inflammatory change, edema and soft tissue thickening about the right common iliac artery, new/progressed from priors and suggestive of inflammatory or infectious vasculitis. Possible developing fluid collection/abscess along the
medial aspect of the right common iliac artery measures up to 2.0 x 1.9 x 2.2 cm
Appreciate vascular surgery input, 'explanting the fenestrated stent graft is a major surgery for him so ideally would like to try ABX and possible drainage'
IR unable to drain, continue pain meds
Follow-up with Dr. Alicea outpatient for repeat abdominal CTA in 4-6 weeks
# Right nonobstructive kidney stone (renal colic) versus musculoskeletal
Appreciate urology input, his nonobstructive right kidney stone is not causing his right flank pain
#Prediabetes
Hemoglobin A1c 6.4, patient informed of his diagnosis
Recommend dietary modification
#Constipation
Start aggressive bowel regimen
# Essential hypertension
Continue metoprolol, valsartan with holding parameter
# Hyperlipidemia
Continue statin
# GERD
Continue omeprazole
DVT prophylaxis�subcu Lovenox
Full code
Updated daughter at bedside 05/02
Updated niece on phone 05/03
Updated daughter at bedside 05/05
Total time spent to see the patient on the floor, examine the patient, review data and lab results, discuss treatment plan with patient, nursing staff around 38 minutes.
Physical Exam
General: No acute distress
HEENT: Normocephalic, Atraumatic, EOMI, MMM
Respiratory: Clear to Auscultation bilaterally
Cardiac: Normal S1/S2, Regular Rate and Rhythm
GI: Soft, Nontender, Nondistended, Normal Bowel Sounds
Extremities: No Clubbing, Cyanosis, or Edema
Neuro: Nonfocal/Grossly Intact
Psych: Calm, Cooperative
Anticipated Discharge: 24 - 48 hours
Subjective/Interval History
-
Date of Service: May 06, 2024
Patient reports his pain is better improved on the 10 mg of oxycodone. He is constipated. No chest pain, no shortness of breath. No fever, no vomiting.
Objective Data
-
Vital Signs:
Vital Signs
Temp Pulse Resp BP Pulse Ox
98.8 F 90 19 128/78 95
05/06/24 07:00 05/06/24 07:00 05/06/24 07:00 05/06/24 07:00 05/06/24 07:00
I&O
05/05/24 05/06/24 05/07/24
06:59 06:59 06:59
Intake Total 720 / 720 1320 / 1320
Balance 720 / 720 1320 / 1320
[2024-05-06] MEDS: SENOKOT-S 2 TABLET PO ×2 (09:43→20:50)
[2024-05-06] MEDS: MIRALAX 17 GRAMS PO ×2 (09:43→20:50)
[2024-05-06 15:10] VITALS: BP 129/85
[2024-05-06] MEDS: DIOVAN 160 MG PO (17:27)
[2024-05-06] MEDS: LOVENOX 40 MG SC (17:27)
[2024-05-06 23:12] VITALS: BP 116/78
[2024-05-07] MEDS: PERCOCET 5/325 2 TABLET PO ×5 (00:21→18:44)
[2024-05-07] MEDS: ANCEF 10 IV ×3 (00:22→15:35)
[2024-05-07 07:33] VITALS: BP 108/69
[2024-05-07] MEDS: VISBIOME 1 CAP PO (08:49)
[2024-05-07] MEDS: B COMPLEX w/VITAMIN C 1 CAPLET PO (08:49)
[2024-05-07] MEDS: LOW STRENGTH ASPIRIN 81 MG PO (08:49)
[2024-05-07] MEDS: CRESTOR 20 MG PO (08:49)
[2024-05-07] MEDS: MIRALAX 17 GRAMS PO (08:49)
[2024-05-07] MEDS: PROTONIX 40 MG PO (08:49)
[2024-05-07] MEDS: TOPROL XL 50 MG PO (08:49)
[2024-05-07] MEDS: SENOKOT-S 2 TABLET PO ×2 (08:50→20:20)
--- NOTE | 2024-05-07 09:00 | W.PN.HOSP.TC ---
Today's Communication/Plan
-
Insert PICC
Discharge tomorrow after outpt IV abx set up
Assessment / Plan
Assessment / Plan
73-year-old man past medical history of
hypertension,
hyperlipidemia,
abdominal aortic aneurysm status post aortic stent graft repair,
nephrolithiasis,
GERD,
comes in with right-sided flank pain radiating around to the anterior abdomen and down to the groin for the past 6 days associated with fever.
A/P:
# Sepsis (fever, tachycardia, leukocytosis) POA
# Persistent staph aureus bacteremia, unclear source
# Possible stent infection of AAA repair with developing abscess
# Possible acute endocarditis
Chest x-ray unremarkable, Influenza and COVID-negative
CT AP showed no acute pathology or obstructing calculi but there is 6 mm nonobstructing calculus in the upper pole of the right kidney
Appreciate ID input, antibiotics changed to ancef, GHISLAINE negative for vegetations
Patient will need a long course of IV antibiotics followed by suppression
Insert PICC, plan for discharge on Wednesday once IV antibiotics have been set up
#Right common iliac artery inflammation/edema, with possible developing fluid collection/abscess
#Abdominal aortic aneurysm status post aortobiiliac stent graft with stable excluded aneurysm sac
#R flank pain
CTA shows marked inflammatory change, edema and soft tissue thickening about the right common iliac artery, new/progressed from priors and suggestive of inflammatory or infectious vasculitis. Possible developing fluid collection/abscess along the
medial aspect of the right common iliac artery measures up to 2.0 x 1.9 x 2.2 cm
Appreciate vascular surgery input, 'explanting the fenestrated stent graft is a major surgery for him so ideally would like to try ABX and possible drainage'
IR unable to drain, continue pain meds
Follow-up with Dr. Alicea outpatient for repeat abdominal CTA in 4-6 weeks
# Right nonobstructive kidney stone (renal colic) versus musculoskeletal
Appreciate urology input, his nonobstructive right kidney stone is not causing his right flank pain
#Prediabetes
Hemoglobin A1c 6.4, patient informed of his diagnosis
Recommend dietary modification
#Constipation
Resolved, continue bowel regimen
# Essential hypertension
Continue metoprolol, valsartan with holding parameter
# Hyperlipidemia
Continue statin
# GERD
Continue omeprazole
DVT prophylaxis�subcu Lovenox
Full code
Updated daughter at bedside 05/02
Updated niece on phone 05/03
Updated daughter at bedside 05/05
Total time spent to see the patient on the floor, examine the patient, review data and lab results, discuss treatment plan with patient, nursing staff around 37 minutes.
Physical Exam
General: No acute distress
HEENT: Normocephalic, Atraumatic, EOMI, MMM
Respiratory: Clear to Auscultation bilaterally
Cardiac: Normal S1/S2, Regular Rate and Rhythm
GI: Soft, Nontender, Nondistended, Normal Bowel Sounds
Extremities: No Clubbing, Cyanosis, or Edema
Neuro: Nonfocal/Grossly Intact
Psych: Calm, Cooperative
Anticipated Discharge: Within 24 hours
Subjective/Interval History
-
Date of Service: May 07, 2024
Patient continues to have right flank pain, well-controlled on his current pain regimen. He had a bowel movement. No fever, no vomiting.
Objective Data
-
Vital Signs:
Vital Signs
Temp Pulse Resp BP Pulse Ox
98.9 F 70 18 108/69 98
05/07/24 07:33 05/07/24 07:33 05/07/24 07:33 05/07/24 07:33 05/07/24 07:33
I&O
05/06/24 05/07/24 05/08/24
06:59 06:59 06:59
Intake Total 1320 / 1320 960 / 960
Balance 1320 / 1320 960 / 960
[2024-05-07 14:51] VITALS: BP 116/81
--- NOTE | 2024-05-07 15:33 | W.PN.UPDATE ---
Update Note
Progress Note Update
Discharge diagnosis:
Sepsis (fever, tachycardia, leukocytosis)
Persistent staph aureus bacteremia, unclear source
Possible stent infection of abdominal aortic aneurysm repair with possible developing abscess
Possible acute endocarditis
Right flank pain
Right nonobstructive kidney stone
Prediabetes
Constipation
Essential hypertension
Hyperlipidemia
Gastroesophageal reflux disease
Consults: ID, vascular surgery, cardiology, urology
CT abdomen and pelvis:
1. Marked inflammatory change, edema and soft tissue thickening about the right common iliac artery, new/progressed from priors and suggestive of inflammatory or infectious vasculitis. Possible developing fluid collection/abscess along the medial
aspect of the right common iliac artery measures up to 2.0 x 1.9 x 2.2 cm.
2. Redemonstration of aortobiiliac stent graft with stable excluded aneurysm sac.
3. Small bilateral pleural effusions.
05/03/24 GHISLAINE
Normal LV size and function without regional wall motion abnormalities.
LVEF is 60-65% by visual estimation.
Small perimembranous VSD noted.
Normal RV size and function.
Mild to moderate MR.
Mild AI.
No obvious vegetation appreciated.
Possible small PFO on color flow Doppler.
Compared to prior from May 01, 2024, small perimembranous VSD is noted as
well as possible small PFO.
Hospital course:
73-year-old male with hypertension, hyperlipidemia, nephrolithiasis, and abdominal aortic aneurysm status post fenestrated endovascular aortic repair (2021, [facility]) who was admitted for sepsis secondary to MSSA bacteremia. He was seen in conjunction
with ID, and treated with IV antibiotics. Blood cultures grew out MSSA, and he was transitioned to IV Ancef. The primary source for his infection is unclear. He was seen in conjunction with cardiology, and GHISLAINE was negative for vegetations.
His CT of the abdomen and pelvis was concerning for possible infection of his AAA repair graft/stent since there is a fluid collection around the right common iliac artery. Patient was seen in conjunction with vascular surgery. Vascular surgery
states that explanting the fenestrated stent graft is a major surgery, so recommended treatment with antibiotics and possible drainage by IR. IR states that the collection is too small to drain. ID recommends a prolonged course of IV antibiotics,
followed by oral antibiotics for suppression.
Patient continued to have right flank pain, likely due to this inflammation and edema around his right common iliac artery. He was treated with pain meds, and received laxatives.
Patient does have a nonobstructive kidney stone. He was seen in conjunction with urology, who states that this is not the cause of his right flank pain.
Patient has new onset glucose intolerance, hemoglobin A1c is 6.4. Dietary modifications were recommended.
Patient is medically stable and cleared by ID for discharge. He had a PICC inserted, and has been set up with outpatient IV Ancef. He needs to follow-up with his primary care doctor in 1 week, vascular surgery and 4 weeks, and ID in 4-5 weeks.
Disposition: Home with home care
Discharge planning: Required 48 minutes
[2024-05-07] MEDS: LOVENOX 40 MG SC (15:36)
--- NOTE | 2024-05-07 16:24 | CM ---
cancer registry manager spoke with patient and patient is agreeable to a referral to [facility], however still waiting on script for IV ABX.
Plan; Home with infusion, need script for IV ABX.
[2024-05-07] MEDS: DIOVAN 160 MG PO (16:59)
[2024-05-07] MEDS: MIRALAX PO (20:20)
[2024-05-07 23:09] VITALS: BP 117/77
[2024-05-08] MEDS: ANCEF 10 IV ×3 (00:08→17:17)
[2024-05-08] MEDS: PERCOCET 5/325 2 TABLET PO ×4 (00:12→17:27)
[2024-05-08 07:34] VITALS: BP 118/86
[2024-05-08] MEDS: CRESTOR 20 MG PO (10:04)
[2024-05-08] MEDS: VISBIOME 1 CAP PO (10:04)
[2024-05-08] MEDS: TOPROL XL 50 MG PO (10:04)
[2024-05-08] MEDS: MIRALAX 17 GRAMS PO (10:04)
[2024-05-08] MEDS: LOW STRENGTH ASPIRIN 81 MG PO (10:04)
[2024-05-08] MEDS: SENOKOT-S 2 TABLET PO (10:04)
[2024-05-08] MEDS: B COMPLEX w/VITAMIN C 1 CAPLET PO (10:05)
[2024-05-08] MEDS: PROTONIX 40 MG PO (10:05)
--- NOTE | 2024-05-08 14:37 | W.PN.ID1 ---
Date of Service
Date of Service: May 08, 2024
Today's Communication
- c/w cefazolin - plan at least 6 week course of IV therapy followed by suppression
- PICC line in place
- script was provided to case finishing machine adjuster on 05/04; resent today
Assessment / Plan
MSSA bacteremia - sustained
Possible stent infection of AAA repair with developing abscess
Possible endocarditis
H/o AAA repair with stenting - 3 years ago
Prediabetes
- previously discussed with IR, collection is not approachable percutaneously
- plan attempt of medical management
- MSSA bacteremia - sustained at lease 04/28-05/01, repeat cultures q48 hours until persistently negative
- 05/03 blood cultures - 1 set done thus far - communicated with RN that second set is necessary
- TTE no valvular lesions, GHISLAINE nonrevealing
- c/w cefazolin - plan at least 6 week course of IV therapy followed by suppression
- PICC line in place
- script was provided to case finishing machine adjuster on 05/04; resent today
- may consider outpatient referral to pain management following discharge.
- follow clinically
Chief Complaint
-: Bacteremia (MSSA)
Subjective / Review of Systems
afebrile
bp stable
no events overnight
Vital Signs / Physical Exam
Vital Signs
Vital Signs
Temp Pulse Resp BP Pulse Ox
98.2 F 94 18 118/86 96
05/08/24 07:34 05/08/24 07:34 05/08/24 07:34 05/08/24 07:34 05/08/24 08:39
Physical Exam
Constitutional: No Acute Distress
Cardiovascular: Regular Rate and S1/S2; Negative Murmur or Rub
Pulmonary: Clear and Symmetric; Negative Wheezes or Rales
Gastrointestinal: Soft, Tender, Non Distended and Normal Bowel Sounds
Skin: Warm and Dry; Negative Rash or Jaundice
Objective Data
Lab Data
Lab Results
05/03/24 11:14
05/03/24 11:14
Estimated Creat Clear 98 ml/min 05/03/24 11:14
Lactic Acid 1.6 mmol/L (0.7-2.0) 04/28/24 17:27
Total Bilirubin 0.7 mg/dl (0.2-1.3) 05/01/24 07:32
AST 35 U/L (17-59) 05/01/24 07:32
ALT 38 U/L (0-50) 05/01/24 07:32
Alkaline Phosphatase 177 U/L (38-126) H 05/01/24 07:32
Most recent labs reviewed.
Micro Results:
05/03/24 12:31 Blood Culture - Final
Blood/Venous No Growth - Final Report
05/03/24 11:14 Blood Culture - Final
Blood/Venous No Growth - Final Report
05/05/24 09:59 Blood Culture - Preliminary
Blood/Venous No Growth in 72 hours- Final report to follow
05/05/24 09:07 Blood Culture - Preliminary
Blood/Venous No Growth in 72 hours- Final report to follow
05/01/24 07:32 Blood Culture - Final
Blood/Venous S aureus-Methicillin Sensitive
Gram Stain - Final
04/30/24 10:31 Blood Culture - Final
Blood/Venous S aureus-Methicillin Sensitive
Gram Stain - Final
04/30/24 10:04 Blood Culture - Final
Blood/Venous S aureus-Methicillin Sensitive
Gram Stain - Final
05/01/24 09:42 Blood Culture - Final
Blood/Venous No Growth - Final Report
04/28/24 17:57 Blood Culture - Final
Blood/Venous S aureus-Methicillin Sensitive
Gram Stain - Final
04/28/24 17:27 Blood Culture - Final
Blood/Venous S aureus-Methicillin Sensitive
Gram Stain - Final
04/28/24 11:10 Urine Culture - Final
Urine NO GROWTH
04/28/24 14:47 Influenza Types A & B (CANDACE) - Final
Nasal Swab Negative for Influenza A & B, NAAT
Negative results must be combined with clinical observations
and patient history.
Nucleic Acid Amplification test (NAAT)performed on the
[employer] platform.
--- NOTE | 2024-05-08 14:59 | CM ---
Chart reviewed. Patient requiring IV abx at d/c. CM sent script and clinicals to [facility] for cost and VN benefits.
Per Terri/Shannan macias clinical liaison, for medication and supplies, it will cost patient approx. $235/week. Patient will need home care VN for teaching and IV.
CM reviewed w/ patient at bedside who is agreeable to the cost.
Spoke w/ Terri, who confirmed that patient has Medicare and teaching will have to be through the VN. Terri will call [facility] to see if a nurse is able to do the teaching and see patient tomorrow at home for his 4pm dose. Picc report and CXR faxed
to [facility].
Updated hospitalist and patient
[facility]

[facility] VN

Plan: Home w/ IV abx supplied by [facility]
Felipa LUCAS
--- NOTE | 2024-05-08 15:02 | W.PN.HOSP.TC ---
Today's Communication/Plan
-
ongoing disposition planning including home antibiotic infusion
Assessment / Plan
Assessment / Plan
73-year-old man past medical history of
hypertension,
hyperlipidemia,
abdominal aortic aneurysm status post aortic stent graft repair,
nephrolithiasis,
GERD,
comes in with right-sided flank pain radiating around to the anterior abdomen and down to the groin for the past 6 days associated with fever.
A/P:
# Sepsis (fever, tachycardia, leukocytosis) POA
# Persistent staph aureus bacteremia, unclear source
# Possible stent infection of AAA repair with developing abscess
# Possible acute endocarditis
Chest x-ray unremarkable, Influenza and COVID-negative
CT AP showed no acute pathology or obstructing calculi but there is 6 mm nonobstructing calculus in the upper pole of the right kidney
Appreciate ID input, antibiotics changed to ancef, GHISLAINE negative for vegetations
Patient will need a long course of IV antibiotics followed by suppression
Insert PICC, plan for discharge on Wednesday once IV antibiotics have been set up
#Right common iliac artery inflammation/edema, with possible developing fluid collection/abscess
#Abdominal aortic aneurysm status post aortobiiliac stent graft with stable excluded aneurysm sac
#R flank pain
CTA shows marked inflammatory change, edema and soft tissue thickening about the right common iliac artery, new/progressed from priors and suggestive of inflammatory or infectious vasculitis. Possible developing fluid collection/abscess along the
medial aspect of the right common iliac artery measures up to 2.0 x 1.9 x 2.2 cm
Appreciate vascular surgery input, 'explanting the fenestrated stent graft is a major surgery for him so ideally would like to try ABX and possible drainage'
IR unable to drain, continue pain meds
Follow-up with Dr. Alicea outpatient for repeat abdominal CTA in 4-6 weeks
# Right nonobstructive kidney stone (renal colic) versus musculoskeletal
Appreciate urology input, his nonobstructive right kidney stone is not causing his right flank pain
#Prediabetes
Hemoglobin A1c 6.4, patient informed of his diagnosis
Recommend dietary modification
#Constipation
Resolved, continue bowel regimen
# Essential hypertension
Continue metoprolol, valsartan with holding parameter
# Hyperlipidemia
Continue statin
# GERD
Continue omeprazole
DVT prophylaxis�subcu Lovenox
Full code
Updated daughter at bedside 05/02
Updated niece on phone 05/03
Updated daughter at bedside 05/05
Total time spent to see the patient on the floor, examine the patient, review data and lab results, discuss treatment plan with patient, nursing staff around 37 minutes.
Anticipated Discharge: Within 24 hours
Subjective/Interval History
-
Date of Service: May 08, 2024
Objective Data
-
Vital Signs:
Vital Signs
Temp Pulse Resp BP Pulse Ox
98.2 F 94 18 118/86 96
05/08/24 07:34 05/08/24 07:34 05/08/24 07:34 05/08/24 07:34 05/08/24 08:39
I&O
05/07/24 05/08/24 05/09/24
06:59 06:59 06:59
Intake Total 960 / 960 1200 / 1200
Balance 960 / 960 1200 / 1200
Physical Exam
-
General: Well Developed, Well Nourished, No Apparent Distress, Comfortable and Conversant; Negative Respiratory Distress
HEENT: Normocephalic, Atraumatic, Nose Appears Normal and Ears Appear Normal; Negative Oxygen
Respiratory: Clear to Auscultation and Non Labored Respirations; Negative Accessory Resp Muscle Use
Cardiac: Regular Rhythm and S1/S2
GI: Soft, Nontender, Nondistended and Normal Bowel Sounds
Skin: Warm and Dry
Neuro: Awake, Alert, Oriented and AO x 3
Psych: Calm and Intact Judgement/Insight
[2024-05-08 15:15] VITALS: BP 132/77
[2024-05-08] MEDS: DIOVAN 160 MG PO (17:16)
[2024-05-08] MEDS: LOVENOX 40 MG SC (17:17)
[2024-05-08] MEDS: MIRALAX PO (20:17)
[2024-05-08] MEDS: SENOKOT-S PO (20:17)
[2024-05-08 22:42] VITALS: BP 95/63
[2024-05-09] MEDS: ANCEF 10 IV ×2 (00:25→08:26)
[2024-05-09] MEDS: PERCOCET 5/325 2 TABLET PO ×2 (00:25→06:17)
[2024-05-09 07:50] VITALS: BP 109/72
[2024-05-09] MEDS: B COMPLEX w/VITAMIN C 1 CAPLET PO (08:12)
[2024-05-09] MEDS: LOW STRENGTH ASPIRIN 81 MG PO (08:13)
[2024-05-09] MEDS: PROTONIX 40 MG PO (08:13)
[2024-05-09] MEDS: SENOKOT-S 2 TABLET PO (08:13)
[2024-05-09] MEDS: TOPROL XL PO (08:13)
[2024-05-09] MEDS: CRESTOR 20 MG PO (08:13)
[2024-05-09] MEDS: VISBIOME 1 CAP PO (08:14)
[2024-05-09] MEDS: MIRALAX PO ×2 (08:14→08:18)
--- NOTE | 2024-05-09 11:24 | W.DS.TRANS ---
DC Summary - Trust Administrative Assistant
-
Discharge Instructions:
Discharge Diagnosis/Procedures Sepsis, bacteremia, possible right common iliac
stent infection, possible acute endocarditis,
prediabetes
Diet Diabetic, Carb Controlled
Activity As tolerated
Driving Restrictions As prior to admission
Instructions:
Stand-Alone Forms:
Changes to Home Medications: Yes
Discharge Medications:
DC Medications w/original date entered in Editorially
rosuvastatin 10 mg tablet 20 mg PO DAILY High cholesterol 08/22/21
valsartan 80 mg tablet 160 mg PO QPM Blood pressure 08/22/21
vitamin B complex 1 tab PO DAILY Supplement 08/25/21
acetaminophen 325 mg tablet 650 mg (2 x 325 mg) PO Q4HPRN PRN mild pain or temp >/= 100.4F 09/03/21
aspirin 81 mg chewable tablet 81 mg PO DAILY #90 tabs 09/03/21
metoprolol succinate 50 mg tablet,extended release 24 hr (Toprol XL) 50 mg PO DAILY Blood Pressure 04/28/24
omeprazole 20 mg tablet,delayed release 20 mg PO DAILY gerd 04/28/24
cefazolin 10 gram solution for injection 2 g IV Q8H #0 ea 05/07/24
oxycodone 10 mg tablet 10 mg PO QID PRN Pain #120 tabs 05/07/24
polyethylene glycol 3350 17 gram/dose oral powder 17 g PO DAILY #510 grams 05/07/24
sennosides 8.6 mg-docusate sodium 50 mg tablet 2 tab PO HS #60 tabs 05/07/24
Home Medication Changes
Antibiotics to complete total of 6 weeks of treatment
Pending Results: No
[2024-05-09 12:00] VITALS: BP 112/68
--- NOTE | 2024-05-09 12:11 | CM ---
Patient is for discharge to home home today with [facility] visiting nurses and [facility] infusion, nurse will be at patient's home at 2pm, and home infusion medication will be delivered today between 2-3pm, patient is aware of plan and deliverers
today.
[facility]

[facility]

Plan; Home today
== END 2024-05-09 13:00 | disposition home health service (06) | DRG 871 ==
LOC: 4 WEST ACU 20:11
PROVIDERS: Emergency Medicine; Family Medicine; Internal Medicine; Internal Medicine Cardiovascular Disease; Radiology Neuroradiology; Registered Nurse; ADMITTING PHYSICIAN Hospitalist; ATTENDING PHYSICIAN Internal Medicine; CONSULT PHYSICIAN Specialist; CONSULT PHYSICIAN Student in an Organized Health Care Education/Training Program; CONSULT PHYSICIAN Surgery Vascular Surgery; EMERGENCY PHYSICIAN Emergency Medicine; FAMILY PHYSICIAN Internal Medicine
PROC: B24BZZ4 Ultrasonography of Heart with Aorta, Transesophageal (ICD-10-PCS; 2024-05-03)
PROC: 02HV33Z Insertion of Infusion Device into Superior Vena Cava, Percutaneous Approach (ICD-10-PCS; 2024-05-08)
DX: A41.01 Sepsis due to Methicillin susceptible Staphylococcus aureus (principal); I33.9 Acute and subacute endocarditis, unspecified; T82.7XXA Infection and inflammatory reaction due to other cardiac and vascular devices, implants and grafts, initial encounter; L02.818 Cutaneous abscess of other sites; Q21.0 Ventricular septal defect; J90 Pleural effusion, not elsewhere classified; I77.89 Other specified disorders of arteries and arterioles; I10 Essential (primary) hypertension; E78.00 Pure hypercholesterolemia, unspecified; E78.49 Other hyperlipidemia; K21.9 Gastro-esophageal reflux disease without esophagitis; R73.03 Prediabetes; R73.9 Hyperglycemia, unspecified; E74.39 Other disorders of intestinal carbohydrate absorption; K59.00 Constipation, unspecified; Y84.8 Other medical procedures as the cause of abnormal reaction of the patient, or of later complication, without mention of misadventure at the time of the procedure; Y92.9 Unspecified place or not applicable; Z87.891 Personal history of nicotine dependence; Z86.79 Personal history of other diseases of the circulatory system; Z79.82 Long term (current) use of aspirin; Z95.2 Presence of prosthetic heart valve; Z87.442 Personal history of urinary calculi; Z11.52 Encounter for screening for COVID-19
CPT/HCPCS: 71045; 71046; 74174; 74176; 76770; 80048; 80053; 81003; 81015; 82248; 82962; 83036; 83605; 83735; 85025; 85027; 87040; 87086; 87150; 87186; 87205; 87502; 87811; 93306; 93312; 93320; 93325; 96361; 96374; 96375; 99285; Q9967

== ENCOUNTER → 2024-07-06 06:56 | Outpatient (REF) | payer MEDICARE, OTHER, SELFPAY | LOC: RAD 06:56 | PROVIDERS: ATTENDING PHYSICIAN Surgery Vascular Surgery; FAMILY PHYSICIAN Internal Medicine | DX: I73.9 Peripheral vascular disease, unspecified (principal) | CPT/HCPCS: 74174; Q9967 ==

== ENCOUNTER → 2024-10-19 07:33 | Outpatient (REF) | payer MEDICARE, OTHER, SELFPAY | LOC: RAD 07:33 | PROVIDERS: ATTENDING PHYSICIAN Surgery Vascular Surgery; FAMILY PHYSICIAN Internal Medicine | DX: I71.42 Juxtarenal abdominal aortic aneurysm, without rupture (principal) | CPT/HCPCS: 74174; Q9967 ==